=== PATIENT | female | born 1940 | race Caucasian/White ===

== ENCOUNTER 2018-01-15 13:19 | Inpatient (IN) | payer OTHER ==
[~2018-01-15] VITALS: Ht 160 cm; Wt 65.0 kg
[~2018-01-15 13:19] MED LIST: AMLODIPINE BES2.5 MG PO; COREG 25 MG TAB25 MG PO; DILTIAZEM HCL120 M2 PO; HYDRODIURIL 2525 MG PO; LEVAQUIN500 MG PO; POTASSIUM CHLO10 ME1 PO
--- NOTE | 2018-01-15 13:26 | ED GENERAL ADULT ---
History of Present Illness General Chief Complaint: General Adult Stated Complaint: PARKINSONS EXACERBATION Source: patient Exam Limitations: no limitations Allergies Coded Allergies: lisinopril (Intermediate, HIVES 01/15/18) Penicillins (VAGINAL DISCHARGE 01/15/18) Reconcile Medications Amlodipine Besylate 2.5 MG TAB 1 TAB PO DAILY HEART (Reported) Carvedilol (Coreg) 25 MG TAB 1 TAB PO BID HEART (Reported) Diltiazem Hydrochloride (Diltiazem HCl) 120 MG C24 1 CAP PO DAILY BP ( Reported) Hydrochlorothiazide (Hydrodiuril 25 MG Tab) 25 MG TAB 1 TAB PO DAILY WATER PILL (Reported) Levofloxacin (Levaquin) 500 MG TAB 1 TAB PO DAILY CELLULITIS Potassium Chloride [address] 1 TAB PO DAILY SUPPLEMENT (Reported) Triage Nurses Notes Reviewed? yes Onset: Abrupt Duration: hour(s): (5) Timing: remote history Injury Environment: home Severity: moderate Modifying Factors: Improves With: other (TIME). HPI: Patient is a 77 YO female presenting to the emergency department should complaint of dystonic reaction that began this morning around 9 AM. She reports that symptoms seem to be subsiding. She has had similar symptoms in the past that presented similarly. Denies any falls. No trauma. Denies headaches nausea vomiting fevers chills chest pain or shortness of breath. Denies abdominal pain. No urinary symptoms. Patient reports that she takes carbidopa levodopa combination and is usually from that medication. She has not taken anything at home prior to arrival to help with symptoms. Other than excessive movement of the upper and lower extremities patient feels fine. On further questioning with family and friends patient has been deteriorating over the past 1-2 weeks. Report that her tremors have been more significant over the past 1 week. Patient has had associated decreased by mouth intake with both fluids and solids. Family also reporting that she's had increased diarrhea over the past one week. She lives alone, usually ambulates around the house with a walker or cane. The friend who takes care of her ankle swelling reports that she hasn't been as mobile as she normally is over the past week or 2. Patient also reports that she had a fall 1 week ago today she went to go sit down thingy there was a chair behind her but there wasn't and she had her head. There is no LOC. Patient was able to get up without difficulty with the help of a friend but reports that she has mild discomfort in the back of her head and since then. She also reports right shoulder pain worsening over the past 6 weeks without any known injury. According to family members and her friend who takes care of her, they report that sometimes she did not make symptoms over the past one week when she speaks (Val Juares) Vital Signs & Intake/Output Vital Signs & Intake/Output Vital Signs Date Time Temp Pulse Resp B/P B/P Pulse O2 O2 Flow FiO2 Mean Ox Delivery Rate 01/15 1609 77 18 132/71 95 Room Air 01/15 1343 Room Air 01/15 1329 96.8 69 18 143/61 92 Room Air (Manuel MEREDITH,Timo Olsen) Past History Medical History Any Pertinent Medical History? see below for history Neurological: Parkinson's disease EENT: NONE Cardiovascular: hypertension Respiratory: NONE Gastrointestinal: NONE Hepatic: NONE Renal: NONE Musculoskeletal: rheumatoid arthritis Psychiatric: NONE Endocrine: NONE Blood Disorders: NONE Cancer(s): NONE OUTPATIENT FACILITY PHYSICAL THERAPIST/Reproductive: NONE Surgical History Surgical History: C-SECT,CERVICAL,CHOLY Psychosocial History What is your primary language Lithuanian Family History Hx Contributory? No (Val Juares) Review of Systems Review of Systems Constitutional: Reports: no symptoms. Comments Review of systems: See HPI, All other systems negative. Constitutional, no chills fever or weight loss HEENT: No visual changes no sore throat no congestion Cardiovascular: No chest pain ,palpitation Skin, no jaundice no rashes Respiratory: No dyspnea cough sputum or hemoptysis GI: No nausea no vomiting : No dysuria No hematuria Muscle skeletal: no back pain, no neck pain, Neurologic: No numbness , no headaches Psych: No stress anxiety or depression,. Heme/endocrine: No bruising no bleeding no polyuria or polydipsia Immunology: No splenectomy or history of AIDS (Val Juares) Physical Exam Physical Exam General Appearance: alert, awake, mild distress Comments: Well-developed well-nourished person in mild distress HEENT: Pupils equally round and reactive to light and accommodation. Nose is atraumatic. Pharynx normal. No swelling or edema. no hemotympanum noted bilaterally. Neck: Normal inspection, full range of motion. Back: Nontender Cardiovascular: Regular rate and rhythms Respiratory: No respiratory distress.breath sounds clear to auscultation bilaterally Abdomen: Soft, nontender nondistended, no appreciable organomegaly. Normal bowel sounds. No ascites Extremity: No edema, radial pulses are 2+ bilaterally. tender to palption over right acromialclavicular joint. Neuro: Alert oriented x3, motor sensory normal, thrashing movements of the upper and lower extremities, rhythmic. Skin: No appreciable rash on exposed skin, skin is warm and dry. Psych: Mood and affect is normal, memory and judgment is normal. Core Measures ACS in differential dx? No CVA/TIA Diagnosis: No Sepsis Present: No Sepsis Focused Exam Completed? No (Lizy MOMIN,Val) Progress Differential Diagnoses I considered the following diagnoses in my evaluation of the patient: Dystonic reaction, worsening Parkinson, medication reaction, electrolyte abnormality, dehydration, acute kidney injury, enteritis, orthostatic hypotension, symptomatic anemia, minor head injury, intracranial hemorrhage Diagnostic Imaging: Viewed by Me: CT Scan. Discussed w/RAD: CT Scan. Radiology Impression: PATIENT: ALTAF MATOS PRESENT AGE: 77 PATIENT ACCOUNT NO: [id number] : 41 LOCATION: [facility] ORDERING PHYSICIAN: Val MOMIN SERVICE DATE: 01/15/18 EXAM TYPE: CAT - CT HEAD WO IV CONTRAST EXAMINATION: CT HEAD WITHOUT CONTRAST CLINICAL INFORMATION: Fall one week ago. COMPARISON: None TECHNIQUE: Contiguous axial imaging was performed from the skull base to vertex without intravenous administration of contrast. DLP: 779.65 mGy-cm FINDINGS: Generalized parenchymal atrophy of the brain with proportion dilation of the ventricles, sulci, and basilar cisterns. Motion artifact partially obscures evaluation. There are intracranial atherosclerotic calcifications. There is no evidence of acute intracranial hemorrhage or territorial infarction. No abnormal mass effect or midline shift is seen. Guidry to white matter differentiation is well preserved. No extra-axial fluid collections are identified. The ventricles are normal in size. There is no abnormal attenuation within the brain parenchyma. The osseous structures and soft tissues are normal. The mastoid air cells and visualized portions of the paranasal sinuses are well aerated. IMPRESSION: No acute intracranial pathology. DICTATED BY: Ernesto Faith MD DATE/TIME DICTATED:01/15 LAWN CARETAKER:LINDA DATE/TIME TRANSCRIBED:01/15/181456 CONFIDENTIAL, DO NOT COPY WITHOUT APPROPRIATE AUTHORIZATION. <Electronically signed in Other Vendor System> SIGNED BY: Ernesto Faith MD 01/15/18 1502, PATIENT: ALTAF MATOS PRESENT AGE: 77 PATIENT ACCOUNT NO: [id number] : 41 LOCATION: [facility] ORDERING PHYSICIAN: Val MOMIN SERVICE DATE: 01/15/18 EXAM TYPE: CAT - CT HEAD WO IV CONTRAST EXAMINATION: CT HEAD WITHOUT CONTRAST CLINICAL INFORMATION: Fall one week ago. COMPARISON: None TECHNIQUE: Contiguous axial imaging was performed from the skull base to vertex without intravenous administration of contrast. DLP: 779.65 mGy-cm FINDINGS: Generalized parenchymal atrophy of the brain with proportion dilation of the ventricles, sulci, and basilar cisterns. Motion artifact partially obscures evaluation. There are intracranial atherosclerotic calcifications. There is no evidence of acute intracranial hemorrhage or territorial infarction. No abnormal mass effect or midline shift is seen. Guidry to white matter differentiation is well preserved. No extra-axial fluid collections are identified. The ventricles are normal in size. There is no abnormal attenuation within the brain parenchyma. The osseous structures and soft tissues are normal. The mastoid air cells and visualized portions of the paranasal sinuses are well aerated. IMPRESSION: No acute intracranial pathology. DICTATED BY: Ernesto Faith MD DATE/TIME DICTATED:01/15/181456 LAWN CARETAKER:LINDA DATE/TIME TRANSCRIBED:01/15/181456 CONFIDENTIAL, DO NOT COPY WITHOUT APPROPRIATE AUTHORIZATION. <Electronically signed in Other Vendor System> SIGNED BY: Ernesto Faith MD 01/15/18 1503 Initial ED EKG: NSR (artifact present) (Lizy MOMIN,Val) Plan of Care: Orders Procedure Date/time Status Heart Healthy Diet 01/16 B Active Heart Healthy Diet 01/15 D Complete Patient Data 01/15 1800 Active Add-on Test (ER Only) 01/15 1800 Active ED Holding Orders 01/15 1757 Active Admit to inpatient 01/15 1757 Active Vital Signs 01/15 1757 Active Code Status 01/15 1757 Active CULTURE,URINE 01/15 1653 Active Add-on Test (ER Only) 01/15 1552 Active EKG 01/15 1552 Active TROPONIN LEVEL 01/15 1516 Complete PARTIAL THROMBOPLASTIN TIME 01/15 151 Complete PROTHROMBIN TIME 01/15 151 Complete CULTURE,STOOL 01/15 143 Active C.DIFFICILE 01/15 143 Active URINALYSIS 01/15 143 Complete LACTIC ACID 01/15 143 Complete COMPREHENSIVE METABOLIC PANEL 01/15 1435 Complete CBC WITHOUT DIFFERENTIAL 01/15 1435 Complete Current Medications Sig/Christy Start time Last Medication Dose Stop Time Status Admin Benztropine Mesylate 2 MG ONCE ONE 01/15 1345 CAN (Cogentin) 01/15 1346 Benztropine Mesylate 1 MG ONCE ONE 01/15 1330 CAN (Cogentin) 01/15 1331 Laboratory Tests 01/15/18 1735: Lactic Acid Cancelled 01/15/18 165: Urine Color YEL, Urine Clarity CLEAR, Urine pH 6.5, Ur Specific [place] 1.015, Urine Protein NEG, Urine Ketones 15 H, Urine Nitrite NEG, Urine Bilirubin NEG, Urine Urobilinogen 0.2, Ur Leukocyte Esterase TRACE H, Ur Microscopic SEDIMENT EXAMINED, Urine RBC RARE, Urine WBC 3-5 H, Ur Epithelial Cells FEW, Urine Bacteria MANY H, Urine Mucus RARE, Urine Hemoglobin TRACE-INTACT, Urine Glucose NEG 01/15/18 151: Anion Gap 9, Estimated GFR 54 L, BUN/Creatinine Ratio 21.0, Glucose 87, Lactic Acid 1.2, Calcium 9.2, Total Bilirubin 0.6, AST 19, ALT 7 L, Alkaline Phosphatase 72, Troponin I < 0.01, Total Protein 6.4, Albumin 3.5, Globulin 2.9, Albumin/Globulin Ratio 1.2, PT 11.8, INR 1.08, APTT 27, CBC w Diff NO MAN DIFF REQ, RBC 3.54 L, MCV 91.2, MCH 30.8, MCHC 33.8, RDW 14.1, MPV 9.7, Gran % 81.4 H, Lymphocytes % 10.4 L, Monocytes % 4.7, Eosinophils % 3.2, Basophils % 0.3, Absolute Granulocytes 6.9 H, Absolute Lymphocytes 0.9 L, Absolute Monocytes 0.4, Absolute Eosinophils 0.3, Absolute Basophils 0 Microbiology 01/15 165 URINE ROUT: Urine Culture - RECD 01/15 151 STOOL: Clostridium difficile Toxin A & B - RECD 04/21 1510 STOOL: Stool Culture - RECD Patient family informed of all imaging results and laboratory results. Patient still orthostatic after 1 L normal saline. H&H has dropped from previous lab values last year and guaiac is positive with brown stool. Patient will need GI consultation, IV hydration. Discharge at this time is medically interval. Patient may need physical therapy consultation, potential rehabilitation placement- patient's thrashing movements have improved after IV Benadryl and IM Cogentin. (Val Juares) (Timo Jackson MD) Departure Departure Time of Disposition: 1823 Disposition: STILL A PATIENT Condition: Stable Clinical Impression Primary Impression: Orthostatic hypotension Secondary Impressions: Dehydration, Symptomatic anemia Referrals: Ahsan Turcios MD Departure Forms: Customer Survey General Discharge Information Admission Note Documentation of Exam: Documentation of any treatments & extenuating circumstances including Concerns Regarding Discharge (functional status, medication knowledge or non-compliance, living conditions, etc.) that warrant an admission rather than observation: Patient will need medication management potentially due to 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 (Val Juares) Admission Note Spoke With: Tyler MEREDITH,Beatriz Documentation of Exam: Documentation of any treatments & extenuating circumstances including Concerns Regarding Discharge (functional status, medication knowledge or non-compliance, living conditions, etc.) that warrant an admission rather than observation: [ Patient to be admitted for IV fluids, Cogentin as needed for dystonia, PT evaluation, unsure if the patient will require short-term rehabilitation at this time. The patient's hematocrit is also dropped slightly. Patient is heme positive with brown stool on rectal exam. Patient will need GI consultation.] PA/CONSTRUCTION PROJECT MANAGER Co-Sign Statement Statement: ED Attending supervision documentation- [X] I saw and evaluated the patient. I have also reviewed all the pertinent lab results and diagnostic results. I agree with the findings and the plan of care as documented in the PA's/CONSTRUCTION PROJECT MANAGER's documentation. [X] I have reviewed the ED Record and agree with the PA's/CONSTRUCTION PROJECT MANAGER's documentation. [] Additions or exceptions (if any) to the PAs/CONSTRUCTION PROJECT MANAGER's note and plan are summarized below: [SEE ABOVE NOTE] (Manuel MEREDITH,Timo Olsen) Critical Care Note Critical Care Note Critical Care Time: non-applicable (Val Juares)
--- NOTE | 2018-01-15 15:03 | CT SCAN REPORT ---
EXAMINATION: CT HEAD WITHOUT CONTRAST CLINICAL INFORMATION: Fall one week ago. COMPARISON: None TECHNIQUE: Contiguous axial imaging was performed from the skull base to vertex without intravenous administration of contrast. DLP: 779.65 mGy-cm FINDINGS: Generalized parenchymal atrophy of the brain with proportion dilation of the ventricles, sulci, and basilar cisterns. Motion artifact partially obscures evaluation. There are intracranial atherosclerotic calcifications. There is no evidence of acute intracranial hemorrhage or territorial infarction. No abnormal mass effect or midline shift is seen. Guidry to white matter differentiation is well preserved. No extra-axial fluid collections are identified. The ventricles are normal in size. There is no abnormal attenuation within the brain parenchyma. The osseous structures and soft tissues are normal. The mastoid air cells and visualized portions of the paranasal sinuses are well aerated. IMPRESSION: No acute intracranial pathology.
[2018-01-15 15:26] LABS: ABSOLUTE BASOPHIL COUNT 0 /CUMM (0.0-0.2); ABSOLUTE EOSINOPHIL COUNT 0.3 /CUMM (0.0-0.7); ABSOLUTE GRANULOCYTE CT 6.9 /CUMM (1.4-6.5); ABSOLUTE LYMPH COUNT 0.9 /CUMM (1.2-3.4); ABSOLUTE MONOCYTE COUNT 0.4 /CUMM (0.10-0.60); BASOPHIL % 0.3 % (0.0-2.0); EOSINOPHIL % 3.2 % (0-5); GRANULOCYTE % 81.4 % (42.2-75.2); HEMATOCRIT 32.3 % (37-47); MEAN CORPUSCULAR HGB 30.8 PG (27.0-31.0); MEAN CORPUSCULAR HGB CONC 33.8 G/DL (33.0-37.0); MEAN CORPUSCULAR VOLUME 91.2 FL (81.0-99.0); MEAN PLATELET VOLUME 9.7 FL (7.4-10.4); PLATELET COUNT 277 /CUMM (130-400); RBC DISTRIBUTION WIDTH 14.1 % (11.5-14.5); RED BLOOD CELL CT 3.54 /CUMM (4.20-5.40); WHITE BLOOD CELL COUNT 8.5 /CUMM (4.8-10.8)
[2018-01-15 16:08] LABS: PT 11.8 SEC (9.4-12.5); PTT 27 SEC (25-37)
--- NOTE | 2018-01-15 16:30 | RADIOLOGY REPORT ---
EXAMINATION: XR SHOULDER, RIGHT CLINICAL INFORMATION: Pain for 6 weeks COMPARISON: None TECHNIQUE: Three views of the right shoulder. FINDINGS: There is no evidence of acute fracture or dislocation of the right shoulder. There is prominent spurring at the glenohumeral joint with some narrowing of the joint space. There is also mild subluxation of the humeral head superiorly which may be indicative of a rotator cuff injury. No definite calcific tendinitis identified. No widening of the coracoclavicular space. No significant inferior acromial spur is seen. IMPRESSION: No acute fracture or dislocation of the right shoulder. Degenerative change with prominent marginal spurring glenohumeral joint.
--- NOTE | 2018-01-15 18:05 | History & Physical ---
Toni Puckett 01/15/18 1804: General Information and HPI MD Statement: I have seen and personally examined ALTAF MATOS and documented this H&P. The patient is a 77 year old F who presented with a patient stated chief complaint of involuntary movements Source of Information: patient Exam Limitations: poor historian History of Present Illness: 77-year-old woman from home past medical history significant for Parkinson's disease, hypertension, hypothyroidism, history of depression brought in by ambulance for intermittent spasmodic involuntary movement of her head trunk and extremities. Patient lives alone administers her own medications however she does have a significant partner who comes in to visit her. She states that was started on carbidopa levodopa and entacapone about 6 months ago and since then that she has been having difficulty walking. She has to neurologist one is Dr. Mclean and the other is a neurologist that she sees at [facility]. She also states that she is also on carbidopa levodopa 25/100 dosage. It is unclear whether she is taking both her alternating them. She also had a fall about a week ago. She says that she was picking up laundry and was about to sit down thinking there was a chair behind her but she fell down and hit her head. Denies loss of consciousness preceding previous prodromal symptoms, loss of consciousness. She endorses dizziness in which she feels herself spinning and has noticed it more and when she is turning or walking. Gives a history of few episodes of dark-colored stools. Denies abdominal pain or bright red bleeding per rectum. Has been taking Aleve almost every other day for pain control. Denies shortness of breath, chest pain, palpitations, nausea, vomiting, vision changes, headache, urinary symptoms or diarrhea. Allergies/Medications Allergies: Coded Allergies: lisinopril (Intermediate, HIVES 01/15/18) Penicillins (VAGINAL DISCHARGE 01/15/18) Home Med list Acetaminophen (Non-Aspirin Pain Relief) (Unknown Strength) TABLET (Unknown Dose) PO PRN PAIN (Reported) Acetaminophen/Diphenhydramine (Tylenol Pm Ex-Strength Caplet) (Unknown Strength) TABLET (Unknown Dose) PO PRN SLEEP (Reported) Amlodipine Besylate 2.5 MG TABLET 1 TAB PO BID BP (Reported) Aspirin (Ecotrin*) 325 MG TABLET.DR 1 TAB PO PRN PAIN (Reported) Carbidopa/Levodopa (Carbidopa-Levodopa 25-100 Tab) 25 MG-100 MG TABLET 2 TAB PO Q5H PARKINSONS (Reported) Carbidopa/Levodopa/Entacapone (Purstxitk-Ndgibstw-Ppln 150 MG) 37.5 MG-150 MG- 200 MG TABLET 1 TAB PO Q4H PARKINSONS (Reported) Carvedilol 25 MG TABLET 1 TAB PO BID HEART/BP (Reported) Cyanocobalamin (Vitamin B-12) (Vitamin B12) (Unknown Strength) TABLET (Unknown Dose) PO DAILY SUPPLEMENT (Reported) Eszopiclone 2 MG TABLET 2 TAB PO QPM SLEEP (Reported) Levothyroxine Sodium 25 MCG TABLET 1 TAB PO DAILY THYROID (Reported) Pyridoxine HCl (Vitamin B-6) (Unknown Strength) TABLET (Unknown Dose) PO DAILY SUPPLEMENT (Reported) Sertraline HCl 50 MG TABLET 1 TAB PO DAILY MENTAL HEALTH (Reported) Vitamin E Mixed (Vitamin E) (Unknown Strength) TABLET (Unknown Dose) PO DAILY SUPPLEMENT (Reported) Compliance With Home Meds: POOR Past History Travel History Traveled to [place] past 21 day No Medical History Neurological: Parkinson's disease EENT: NONE Cardiovascular: hypertension Respiratory: NONE Gastrointestinal: NONE Hepatic: NONE Renal: NONE Musculoskeletal: rheumatoid arthritis Psychiatric: NONE Endocrine: NONE Blood Disorders: NONE Cancer(s): NONE FISH AND WILDLIFE WARDEN/Reproductive: NONE Surgical History Surgical History: C-SECT,CERVICAL,CHOLY Past Family/Social History Psychosocial History ETOH Use: denies use Functional Ability ADLs Unknown: dressing, eating, toileting, bathing. Ambulation: walker IADLs Unknown: shopping, housework, finances, food prep, telephone, transportation, medication admin. Review of Systems Review of Systems Constitutional: Denies: see HPI. Exam & Diagnostic Data Last 24 Hrs of Vital Signs/I&O Vital Signs Date Time Temp Pulse Resp B/P B/P Pulse O2 O2 Flow FiO2 Mean Ox Delivery Rate 01/15 1958 98.1 63 20 204/100 94 Room Air 01/15 191 97.6 78 16 178/82 96 Room Air 01/15 1609 77 18 132/71 95 Room Air 01/15 1343 Room Air 01/15 1329 96.8 69 18 143/61 92 Room Air Intake & Output 01/15 1600 01/15 0800 04/21 0000 Intake Total 0 Output Total Balance 0 Intake, IV 0 Patient 167 lb Weight Physical Exam General Appearance Alert, Oriented X3, Cooperative HEENT PERRLA, scab on what is on crown of head Neck Supple Cardiovascular Regular Rate, Normal S1, Normal S2 Lungs Clear to Auscultation, Normal Air Movement Abdomen Normal Bowel Sounds, Soft, No Tenderness Neurological Normal Speech, Strength at 5/5 X4 Ext, Cranial Nerves 3-12 NL, Reflexes 2+, lower extremity muscle wasting noted Extremities No Edema, Normal Pulses Diagnostic Data Other Results CT HEAD WO IV CONTRAST FINDINGS: Generalized parenchymal atrophy of the brain with proportion dilation of the ventricles, sulci, and basilar cisterns. Motion artifact partially obscures evaluation. There are intracranial atherosclerotic calcifications. There is no evidence of acute intracranial hemorrhage or territorial infarction. No abnormal mass effect or midline shift is seen. Guidry to white matter differentiation is well preserved. No extra-axial fluid collections are identified. The ventricles are normal in size. There is no abnormal attenuation within the brain parenchyma. The osseous structures and soft tissues are normal. The mastoid air cells and visualized portions of the paranasal sinuses are well aerated. IMPRESSION: No acute intracranial pathology. XRY-SHOULDER COMPLETE-RIGHT FINDINGS: There is no evidence of acute fracture or dislocation of the right shoulder. There is prominent spurring at the glenohumeral joint with some narrowing of the joint space. There is also mild subluxation of the humeral head superiorly which may be indicative of a rotator cuff injury. No definite calcific tendinitis identified. No widening of the coracoclavicular space. No significant inferior acromial spur is seen. IMPRESSION: No acute fracture or dislocation of the right shoulder. Degenerative change with prominent marginal spurring glenohumeral joint. Assessment/Plan Assessment: 77-year-old woman from home past medical history significant for Parkinson's disease, hypertension, hypothyroidism, history of depression brought in by ambulance for intermittent spasmodic involuntary movement of her head trunk and extremities. Noted to be dystonic in ED, her symptoms improved after Benadryl and Cogentin. Labs significant for hypokalemia and mild drop in H&H. Assessment/plan: Dystonia Likely secondary to levodopa-induced dyskinesia Unclear if patient is taking too much of her levodopa Neurology consult in the AM Patient sees Dr. Mclean as outpatient Fall/gait imbalance Differential include Deconditioning, autonomic dysfunction secondary to Parkinson's, hypokalemia and dehydration Orthostatic positive in ED, repeat tomorrow Will hold her Norvasc for now Hypokalemia Repleted in the ED, continue to monitor Hypertension Continue carvedilol Hypothyroidism continue levothryoxine Melena The setting of frequent Aleve use? Upper GI bleed monitor CBC Monitor for active bleeding GI consulted DVT prophylaxis Alps secondary to melena Heart healthy diet Full code As Ranked By This Provider Problem List: 1. Orthostatic hypotension 2. Dehydration 3. Symptomatic anemia Core Measures/Misc (06/13) Acute Coronary Syndrome ACS Diagnosis: No Congestive Heart Failure Congestive Heart Failure Diagnosis No Cerebrovascular Accident CVA/TIA Diagnosis: No VTE (View Protocol) VTE Risk Factors Age>40 No Mechanical VTE Prophylaxis d/t Medical Contraindication No VTE Pharm Prophylaxis d/t NA PharmProphylax ordered Sepsis (View protocol) Sepsis Present: No Juventino MEREDITH, [facility] 01/15/186: Attending MD Review Statement Attending Statement Attending MD Statement: examined this patient, discuss w/resident/PA/COLOR CONSULTANT, agreed w/resident/PA/COLOR CONSULTANT, reviewed images, amended to note Attending Assessment/Plan: 77 yo F with h/o Parkinson's disease (diagnosed 10 yrs ago), HTN, CAD s/p stents , hypothyroidism, depression, rheumatic fever as a child, osteoarthritis, is brought in for uncontrolled involuntary movements of her extremities and head. Patient lives alone, ambulates with a walker/cane and has a partner (Devyn) who helps with meals and cleaning. She follows with Dr. Mclean (Neurologist) and a Movement specialist doctor at [place]. She has been on carbidopa-levodopa for her Parkinson's, and about 6 months ago she was started on triple combination [id number]. Patient has been taking both these medications based on how she feels. If she feels low, develops myalgias, tremors, slowness of movement then she know she has to take her medications. If she feels up to it then she may dose herself later than the scheduled time. Patient is a limited historian and tends to have tangential thoughts and needs to be redirected to the question everytime. She feels her symptoms today were due to the medication and reports similar symptoms in the past. Her partner noticed these abnormal movements today and called 911. Patient received benadryl and cogentin with resolution of her symptoms. Patient has been having difficulty ambulating since she was started on the triple therapy for Parkinson's. 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 She hit the posterior aspect of head but did not lose consciouseness. She does report dizziness which is positional. She has had dark stools for the past few days. Denies heartburn, melena or BRBPR. Reports poor appetite. Denies diarrhea or constipation, although ER note states she had diarrhea. She is supposed to be on aspirin 325 mg for her CAD, but she takes aspirin every 6 hours to help with her arthritic pain. She also takes Aleve at times to help with the pain. Unclear when she had her last colonoscopy. Vitals stable except for elevated BP (200/98). Labs: normocytic anemia H/H 10.9/32.3 (13.7/41.4 in December 2016), K 3.3, BUN 21, lactic acid 1.2, CK 150, trop neg, TSH normal. UA trace LE, proteinuria, WBC 3- 5. EKG: appears sinus although baseline artifact as patient was tremulous. CT head: no acute pathology. Shoulder Xray: no acute fracture, degenerative change with prominent marginal spurring glenohumeral joint, mild subluxation of the humeral head superiorly which may be indicative of a rotator cuff injury. Orthostats: Lying 218/91 --> Sitting 192/83 --> Standing 154/75. Rectal exam: brown stool, guaiac positive. Assessment and plan: 1. Dyskinesia, acute dystonic reaction 2. Parkinson's disease on medications 3. Orthostatic hypotension 2/2 autonomic dysfunction 4. Normocytic anemia with heme positive stools, rule out upper GI bleed in the setting of excessive use of NSAIDs 5. Fall, gait instability 6. Hypokalemia, ?diarrhea 7. Uncontrolled hypertension - Admit to General medicine - Fall precautions - Watch for further dyskinesias - Neurochecks Q4 - Resume carbidopa-levodopa in AM - Hold entacapone for now - In addition to her autonomic dysfunction, parkinson medications can also cause orthostatic hypotension. - Place bilateral compression stockings - Gentle hydration (500 mls given in ER) - If BP allows, will give additional fluids - Obtain Neuro consult, needs med adjustment - Repeat EKG - Hold norvasc, aspirin and no NSAIDs - Resume carvedilol - Type and crossmatch - Guaiac all stools - Check iron studies, B12, folic acid, retic count - Check CBC in AM, transfuse if Hb < 8.0 - Add prilosec daily - GI consult ?inpatient vs outpatient EGD/colonoscopy - Replete K, check Mag levels. - PT eval, possible STR - Case management consult patient will need visiting nurse to help with administration of medications. DVT ppx Alps. Full code.
[2018-01-15] MEDS ORDERED: AMLODIPINE BES2.5 M1 PO (19:00)
[2018-01-15] MEDS ORDERED: SERTRALINE HCL50 MG PO (19:01)
[2018-01-15] MEDS ORDERED: CARVEDILOL25 M1 PO (19:02)
[2018-01-15] MEDS ORDERED: LEVOTHYROXINE25 MCG PO (19:02)
[2018-01-15] MEDS ORDERED: ESZOPICLONE2 M1 PO (19:02)
[2018-01-15] MEDS ORDERED: CARBIDOPA-LEVO1 EAC7 PO (19:03)
[2018-01-15] MEDS ORDERED: CARBIDOPA-LEVO1 EACH PO (19:06)
[2018-01-15] MEDS ORDERED: VITAMIN B-650 M2 PO (19:09)
[2018-01-15] MEDS ORDERED: VITAMIN B122500 MC1 PO (19:09)
[2018-01-15] MEDS ORDERED: ASPIRIN EC325 M2 PO (19:10)
[2018-01-15] MEDS ORDERED: VITAMIN E100 UNI2 PO (19:10)
[2018-01-15] MEDS ORDERED: TYLENOL PM EX-1 EACH PO (19:10)
[2018-01-15] MEDS ORDERED: NON-ASPIRIN PA500 MG PO (19:11)
[2018-01-15 19:58] VITALS: BP 204/100
--- NOTE | 2018-01-15 21:35 | Admission Certification ---
Admission Certification Certification Statement - As attending physician, I certify that at the time of - admission, based on clinical presentation, severity of - symptoms, need for further diagnostic testing and - therapeutic interventions, and risk of adverse outcomes - without in-hospital treatment, in my clinical assessment, - this patient requires an acute hospital stay for a minimum - of two nights or longer. I have also considered psychsocial - factors such as support system, advanced age, financial - issues, cognitive issues, and failed out-patient treatments, - past re-admission history, safety of patient, and lack of - compliance as applicable. Specific rationale supporting this admission is: Dyskinesia in this patient with Parkinson's disease on medications and normocytic anemia that requires further evaluation.
[2018-01-15 22:00] VITALS: BP 200/98
[2018-01-16 00:54] VITALS: BP 158/70
[2018-01-16 06:57] VITALS: BP 174/80
--- NOTE | 2018-01-16 07:33 | PN- Housestaff ---
Subjective Follow-up For: Orthostatis hypotansion Parkinsonism Subjective: Patient visited today, was lying in bed comfortably in no acute distress, was alert and oriented. No fever or chills, no shortness of breathing, no chest pain, no other events. in baseline ambulated with walker. Review of Systems Constitutional: Reports: see HPI. Objective Last 24 Hrs of Vital Signs/I&O Vital Signs Date Time Temp Pulse Resp B/P B/P Pulse O2 O2 Flow FiO2 Mean Ox Delivery Rate 01/16 0934 178/80 01/16 0657 97.8 64 18 174/80 93 Room Air 01/16 0054 60 158/70 01/15 2204 60 200/98 01/15 2200 97.2 97 18 200/98 92 Room Air 01/15 1958 98.1 63 20 204/100 94 Room Air 01/15 1912 97.6 78 16 178/82 96 Room Air 01/15 1609 77 18 132/71 95 Room Air 01/15 1343 Room Air Intake & Output 01/16 1600 01/16 0800 01/16 0000 Intake Total 300 400 Output Total 250 Balance 300 150 Intake, Oral 300 400 Number 1 Bowel Movements Output, Urine 250 Patient 151 lb 163 lb Weight Weight Bed scale Reported by Patient Measurement Method Physical Exam General Appearance: Alert, Oriented X3, Cooperative, No Acute Distress Skin Temp/Moisture Exam: Warm/Dry Sepsis Skin Exam (color): Normal for Ethnicity HEENT: Atraumatic, EOMI Cardiovascular: Regular Rate, Normal S1, Normal S2 Lungs: Clear to Auscultation Abdomen: Soft, No Tenderness Neurological: Normal Speech, Strength at 5/5 X4 Ext, Cranial Nerves 3-12 NL, Reflexes 2+ Extremities: No Edema, Normal Pulses Current Medications: Current Medications Sig/Christy Start time Last Medication Dose Route Stop Time Status Admin Acetaminophen 650 MG ONCE ONE 01/16 1315 DC PO 01/16 1316 Benztropine Mesylate 1 MG ONCE ONE 01/15 1400 DC 01/15 IM 01/15 1401 1405 Benztropine Mesylate 2 MG ONCE ONE 01/15 1345 CAN IV 01/15 1346 Benztropine Mesylate 1 MG ONCE ONE 01/15 1330 CAN IV 01/15 1331 Carbidopa/Levodopa 1.5 TAB Q6H 01/16 1000 AC 01/16 PO 0934 Carvedilol 25 MG BID 01/15 2100 AC 01/16 PO 0934 Diphenhydramine HCl 0 .STK-MED ONE 01/15 1402 DC .ROUTE Diphenhydramine HCl 25 MG ONCE ONE 01/15 1400 DC 01/15 IV 01/15 1401 1405 Enoxaparin Sodium 40 MG DAILY 01/16 0900 CAN SC Entacapone 200 MG Q6H 01/16 1000 CAN PO Influenza Virus 0.5 ML ONCE ONE 01/15 2115 DC Vaccine IM 01/15 211 Levothyroxine Sodium 0.025 MG DAILY AC 01/16 0700 AC 01/16 PO 0636 Omeprazole 20 MG DAILY AC 01/16 1230 AC 01/16 PO 1258 Omeprazole 20 MG DAILY AC 01/16 0700 AC PO Potassium Chloride 0 .STK-MED ONE 01/15 1622 DC PO Potassium Chloride 40 MEQ ONCE ONE 01/15 1600 DC 01/15 PO 01/15 1601 1632 Sodium Chloride 1,000 ML BOLUS ONE 01/15 1445 DC 01/15 IV 01/15 1644 1537 Last 24 Hrs of Lab/Tani Results Last 24 Hrs of Labs/Mics: Laboratory Tests 01/16/18 0755: Anion Gap 7, Estimated GFR > 60, BUN/Creatinine Ratio 17.8, CBC w Diff NO MAN DIFF REQ, RBC 3.55 L, MCV 91.1, MCH 31.2 H, MCHC 34.2, RDW 13.9, MPV 10.1, Gran % 68.9, Lymphocytes % 18.7 L, Monocytes % 6.3, Eosinophils % 5.4 H, Basophils % 0.7, Absolute Granulocytes 3.9, Absolute Lymphocytes 1.1 L, Absolute Monocytes 0.4, Absolute Eosinophils 0.3, Absolute Basophils 0 01/15/18 1735: Lactic Acid Cancelled 01/15/18 1653: Urine Color YEL, Urine Clarity CLEAR, Urine pH 6.5, Ur Specific [place] 1.015, Urine Protein NEG, Urine Ketones 15 H, Urine Nitrite NEG, Urine Bilirubin NEG, Urine Urobilinogen 0.2, Ur Leukocyte Esterase TRACE H, Ur Microscopic SEDIMENT EXAMINED, Urine RBC RARE, Urine WBC 3-5 H, Ur Epithelial Cells FEW, Urine Bacteria MANY H, Urine Mucus RARE, Urine Hemoglobin TRACE-INTACT, Urine Glucose NEG 01/15/18 1516: Anion Gap 9, Estimated GFR 54 L, BUN/Creatinine Ratio 21.0, Glucose 87, Lactic Acid 1.2, Calcium 9.2, Iron 85, TIBC 335, Ferritin 24.1, Total Bilirubin 0.6, AST 19, ALT 7 L, Alkaline Phosphatase 72, Creatine Kinase 150 H, Troponin I < 0.01, Total Protein 6.4, Albumin 3.5, Globulin 2.9, Albumin/Globulin Ratio 1.2, Vitamin B12 573, Folate 10.6, TSH 1.030, Thyroxine (T4) 6.0, PT 11.8, INR 1.08, APTT 27, CBC w Diff NO MAN DIFF REQ, RBC 3.54 L, MCV 91.2, MCH 30.8, MCHC 33.8, RDW 14.1, MPV 9.7, Gran % 81.4 H, Lymphocytes % 10.4 L, Monocytes % 4.7, Eosinophils % 3.2, Basophils % 0.3, Absolute Granulocytes 6.9 H, Absolute Lymphocytes 0.9 L, Absolute Monocytes 0.4, Absolute Eosinophils 0.3, Absolute Basophils 0 Microbiology 01/15 1653 URINE ROUT: Urine Culture - RES 01/15 1510 STOOL: Clostridium difficile Toxin A & B - RES 01/15 1510 STOOL: Stool Culture - RES Assessment/Plan Assessment: 77-year-old woman from home past medical history significant for Parkinson's disease, hypertension, hypothyroidism, history of depression brought in by ambulance for intermittent spasmodic involuntary movement of her head trunk and extremities. Noted to be dystonic in ED, her symptoms improved after Benadryl and Cogentin. Labs significant for hypokalemia and mild drop in H&H. Assessment/plan: Dystonia Likely secondary to levodopa-induced dyskinesia Unclear if patient is taking too much of her levodopa Neurology consult placed follow neurology Patient sees Dr. Mclena as outpatient Fall/gait imbalance Differential include Deconditioning, autonomic dysfunction secondary to Parkinson's, hypokalemia and dehydration Orthostatic positive in ED Will hold her Norvasc for now Hypokalemia Repleted in the ED, continue to monitor Hypertension Continue carvedilol consider to hold if BP low Hypothyroidism continue levothryoxine Melena The setting of frequent Aleve use? Upper GI bleed monitor CBC Monitor for active bleeding GI signed off Oral PPI DVT prophylaxis Alps secondary to melena Heart healthy diet Full code Problem List: 1. Orthostatic hypotension Pain Ratin Pain Location: none Pain Goal: Pain 4 or less Pain Plan: conintue current plan Tomorrow's Labs & Rationales: CBC BEP
[2018-01-16 09:24] LABS: ABSOLUTE BASOPHIL COUNT 0 /CUMM (0.0-0.2); ABSOLUTE EOSINOPHIL COUNT 0.3 /CUMM (0.0-0.7); ABSOLUTE GRANULOCYTE CT 3.9 /CUMM (1.4-6.5); ABSOLUTE LYMPH COUNT 1.1 /CUMM (1.2-3.4); ABSOLUTE MONOCYTE COUNT 0.4 /CUMM (0.10-0.60); BASOPHIL % 0.7 % (0.0-2.0); EOSINOPHIL % 5.4 % (0-5); GRANULOCYTE % 68.9 % (42.2-75.2); HEMATOCRIT 32.3 % (37-47); MEAN CORPUSCULAR HGB 31.2 PG (27.0-31.0); MEAN CORPUSCULAR HGB CONC 34.2 G/DL (33.0-37.0); MEAN CORPUSCULAR VOLUME 91.1 FL (81.0-99.0); MEAN PLATELET VOLUME 10.1 FL (7.4-10.4); PLATELET COUNT 284 /CUMM (130-400); RBC DISTRIBUTION WIDTH 13.9 % (11.5-14.5); RED BLOOD CELL CT 3.55 /CUMM (4.20-5.40); WHITE BLOOD CELL COUNT 5.6 /CUMM (4.8-10.8)
--- NOTE | 2018-01-16 11:38 | Cons- Gastroenterology ---
General Information and HPI Consulting Request Date of Consult: 01/16/18 Requested By: Juventino MEREDITH,Marybel Reason for Consult: Diarrhea, reports of melena. Source of Information: patient Exam Limitations: no limitations History of Present Illness: Ms. Ge is a 77 year old female with a PMH significant for RA and Parkinsons disease for which she was started on levodopa/cardiodopa about 6 months ago who was admitted to [facility] yesterday after she presented with progressive neurological symptoms and an inability to ambulate/falls for which she was admitted. In taking her history it was noted by the housestaff that she has been taking alleve for joint pains and she has also been having diarrhea which she states has been dark for which a gi consultation was called. She notes that since she was diagnosed with Parkinsons about 10 years ago she has had issues with constipation and when she doesn't go for a period of a few days she will take an otc laxative with good results and she notes to me this was the loose stool she was complaining of. She notes the stool was dark, but she denies having black tarry sticky stool and she has also been without any hematochezia. She does take alleve for her joint pains, but she is without any GI distress with taking this. She notes heatburn very rarely (less then once a month) and she notes this generally only occurs with dietary indiscretion. She is without any dysphagia or vomiting. Since admission she has been hemodynamically stable and she has been tolerating a diet without difficulty. Stool studies have been ordered, but have not been collected as of yet as she has not yet had a bowel movement. Allergies/Medications Allergies: Coded Allergies: lisinopril (Intermediate, HIVES 01/15/18) Penicillins (VAGINAL DISCHARGE 01/15/18) Home Med List: Acetaminophen (Non-Aspirin Pain Relief) (Unknown Strength) TABLET (Unknown Dose) PO PRN PAIN (Reported) Acetaminophen/Diphenhydramine (Tylenol Pm Ex-Strength Caplet) (Unknown Strength) TABLET (Unknown Dose) PO PRN SLEEP (Reported) Amlodipine Besylate 2.5 MG TABLET 1 TAB PO BID BP (Reported) Aspirin (Ecotrin*) 325 MG TABLET.DR 1 TAB PO PRN PAIN (Reported) Carbidopa/Levodopa (Carbidopa-Levodopa 25-100 Tab) 25 MG-100 MG TABLET 2 TAB PO Q5H PARKINSONS (Reported) Carbidopa/Levodopa/Entacapone (Aqbzvpoal-Pohpitzb-Djab 150 MG) 37.5 MG-150 MG- 200 MG TABLET 1 TAB PO Q4H PARKINSONS (Reported) Carvedilol 25 MG TABLET 1 TAB PO BID HEART/BP (Reported) Cyanocobalamin (Vitamin B-12) (Vitamin B12) (Unknown Strength) TABLET (Unknown Dose) PO DAILY SUPPLEMENT (Reported) Eszopiclone 2 MG TABLET 2 TAB PO QPM SLEEP (Reported) Levothyroxine Sodium 25 MCG TABLET 1 TAB PO DAILY THYROID (Reported) Pyridoxine HCl (Vitamin B-6) (Unknown Strength) TABLET (Unknown Dose) PO DAILY SUPPLEMENT (Reported) Sertraline HCl 50 MG TABLET 1 TAB PO DAILY MENTAL HEALTH (Reported) Vitamin E Mixed (Vitamin E) (Unknown Strength) TABLET (Unknown Dose) PO DAILY SUPPLEMENT (Reported) Current Medications: Current Medications Sig/Christy Start time Last Medication Dose Route Stop Time Status Admin Benztropine Mesylate 1 MG ONCE ONE 01/15 1400 DC 01/15 IM 01/15 1401 1405 Benztropine Mesylate 2 MG ONCE ONE 01/15 1345 CAN IV 01/15 1346 Benztropine Mesylate 1 MG ONCE ONE 01/15 1330 CAN IV 01/15 1331 Carbidopa/Levodopa 1.5 TAB Q6H 01/16 1000 AC 01/16 PO 0934 Carvedilol 25 MG BID 01/15 2100 AC 01/16 PO 0934 Diphenhydramine HCl 0 .STK-MED ONE 01/15 1402 DC .ROUTE Diphenhydramine HCl 25 MG ONCE ONE 01/15 1400 DC 01/15 IV 01/15 1401 1405 Enoxaparin Sodium 40 MG DAILY 01/16 0900 CAN SC Entacapone 200 MG Q6H 01/16 1000 CAN PO Influenza Virus 0.5 ML ONCE ONE 01/15 2115 DC Vaccine IM 01/15 211 Levothyroxine Sodium 0.025 MG DAILY AC 01/16 0700 AC 01/16 PO 0636 Omeprazole 20 MG DAILY AC 01/16 0700 AC PO Potassium Chloride 0 .STK-MED ONE 01/15 1622 DC PO Potassium Chloride 40 MEQ ONCE ONE 01/15 1600 DC 01/15 PO 01/15 1601 1632 Sodium Chloride 1,000 ML BOLUS ONE 01/15 1445 DC 01/15 IV 01/15 1641 1537 Past History Travel History Traveled to [place] past 21 day No Medical History Blood Transfusion Hx: No Neurological: Parkinson's disease EENT: NONE Cardiovascular: hypertension Respiratory: NONE Gastrointestinal: NONE Hepatic: NONE Renal: NONE Musculoskeletal: rheumatoid arthritis Psychiatric: NONE Endocrine: NONE Blood Disorders: NONE Cancer(s): NONE 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 Home Smoking Status: Never Smoked ETOH Use: denies use Functional Ability ADLs Unknown: dressing, eating, toileting, bathing. Ambulation: walker IADLs Unknown: shopping, housework, finances, food prep, telephone, transportation, medication admin. Review of Systems Review of Systems Constitutional: Reports: weakness. Denies: chills, diaphoresis, fever. EENTM: Denies: no symptoms. Cardiovascular: Denies: no symptoms. Respiratory: Denies: no symptoms. GI: Reports: see HPI. Genitourinary: Denies: no symptoms. Musculoskeletal: Reports: joint pain, joint swelling, muscle pain, muscle stiffness. Denies: back pain, neck pain. Skin: Denies: no symptoms. Neurological/Psychological: Reports: ataxia, pre-existing deficit, other (involuntary movements). Hematologic/Endocrine: Denies: no symptoms. Immunologic/Allergic: Denies: no symptoms. All Other Systems: Reviewed and Negative Exam & Diagnostic Data Vital Signs and I&O Vital Signs Date Time Temp Pulse Resp B/P B/P Pulse O2 O2 Flow FiO2 Mean Ox Delivery Rate 01/16 0934 178/80 01/16 0657 97.8 64 18 174/80 93 Room Air 01/16 0054 60 158/70 01/15 2204 60 200/98 01/15 220 97.2 97 18 200/98 92 Room Air 01/15 1958 98.1 63 20 204/100 94 Room Air 01/15 1912 97.6 78 16 178/82 96 Room Air 01/15 1609 77 18 132/71 95 Room Air 01/15 1343 Room Air 01/15 1329 96.8 69 18 143/61 92 Room Air Intake & Output 01/16 1600 01/16 0400 01/15 1600 01/15 0400 01/14 1600 01/14 0400 Intake Total 300 400 0 Output Total 250 Balance 300 150 0 Intake, IV 0 Intake, Oral 300 400 Number 1 Bowel Movements Output, Urine 250 Patient 151 lb 163 lb 167 lb Weight Weight Bed scale Reported by Patient Measurement Method Physical Exam General Appearance: well developed/nourished, no apparent distress, comfortable Head: atraumatic, normal appearance Eyes: Bilateral: normal appearance. Ears, Nose, Throat: normal pharynx, normal ENT inspection Neck: normal inspection, supple, full range of motion Respiratory: normal breath sounds, chest non-tender, no respiratory distress Cardiovascular: regular rate/rhythm Gastrointestinal: normal bowel sounds, soft, non-tender, no organomegaly Rectal: deferred Back: normal inspection Extremities: no edema, chronic joint deformities c/w chronic RA Neurologic/Psych: awake, alert, oriented x 3, aphasia Skin: intact, normal color, warm/dry Results Pertinent Lab Results: Laboratory Tests 01/16 01/15 0755 1735 Chemistry Sodium (137 - 145 mmol/L) 139 Potassium (3.5 - 5.1 mmol/L) 3.5 Chloride (98 - 107 mmol/L) 110 H Carbon Dioxide (22 - 30 mmol/L) 22 Anion Gap (5 - 16) 7 BUN (7 - 17 mg/dL) 16 Creatinine (0.5 - 1.0 mg/dL) 0.9 Estimated GFR (>60 ml/min) > 60 BUN/Creatinine Ratio (7 - 25 %) 17.8 Lactic Acid Cancelled Hematology CBC w Diff NO MAN DIFF REQ WBC (4.8 - 10.8 /CUMM) 5.6 RBC (4.20 - 5.40 /CUMM) 3.55 L Hgb (12.0 - 16.0 G/DL) 11.1 L Hct (37 - 47 %) 32.3 L MCV (81.0 - 99.0 FL) 91.1 MCH (27.0 - 31.0 PG) 31.2 H MCHC (33.0 - 37.0 G/DL) 34.2 RDW (11.5 - 14.5 %) 13.9 Plt Count (130 - 400 /CUMM) 284 MPV (7.4 - 10.4 FL) 10.1 Gran % (42.2 - 75.2 %) 68.9 Lymphocytes % (20.5 - 51.1 %) 18.7 L Monocytes % (1.7 - 9.3 %) 6.3 Eosinophils % (0 - 5 %) 5.4 H Basophils % (0.0 - 2.0 %) 0.7 Absolute Granulocytes (1.4 - 6.5 /CUMM) 3.9 Absolute Lymphocytes (1.2 - 3.4 /CUMM) 1.1 L Absolute Monocytes (0.10 - 0.60 /CUMM) 0.4 Absolute Eosinophils (0.0 - 0.7 /CUMM) 0.3 Absolute Basophils (0.0 - 0.2 /CUMM) 0 01/15 01/15 1653 1516 Chemistry Sodium (137 - 145 mmol/L) 137 Potassium (3.5 - 5.1 mmol/L) 3.3 L Chloride (98 - 107 mmol/L) 105 Carbon Dioxide (22 - 30 mmol/L) 23 Anion Gap (5 - 16) 9 BUN (7 - 17 mg/dL) 21 H Creatinine (0.5 - 1.0 mg/dL) 1.0 Estimated GFR (>60 ml/min) 54 L BUN/Creatinine Ratio (7 - 25 %) 21.0 Glucose (65 - 99 mg/dL) 87 Lactic Acid (0.7 - 2.1 mmol/L) 1.2 Calcium (8.4 - 10.2 mg/dL) 9.2 Iron (37 - 170 ug/dL) 85 TIBC (265 - 497 ug/dL) 335 Ferritin (11.1 - 264 ng/mL) 24.1 Total Bilirubin (0.2 - 1.3 mg/dL) 0.6 AST (14 - 36 U/L) 19 ALT (9 - 52 U/L) 7 L Alkaline Phosphatase (<127 U/L) 72 Creatine Kinase (30 - 135 U/L) 150 H Troponin I (< 0.11 ng/ml) < 0.01 Total Protein (6.3 - 8.2 g/dL) 6.4 Albumin (3.5 - 5.0 g/dL) 3.5 Globulin (1.9 - 4.2 gm/dL) 2.9 Albumin/Globulin Ratio (1.1 - 2.2 %) 1.2 Vitamin B12 (239 - 931 pg/mL) 573 Folate (2.76 - 20.0 ng/mL) 10.6 TSH (0.270 - 4.200 uIU/mL) 1.030 Thyroxine (T4) (4.5 - 10.9 ug/dL) 6.0 Coagulation PT (9.4 - 12.5 SEC) 11.8 INR (0.90 - 1.19) 1.08 APTT (25 - 37 SEC) 27 Hematology CBC w Diff NO MAN DIFF REQ WBC (4.8 - 10.8 /CUMM) 8.5 RBC (4.20 - 5.40 /CUMM) 3.54 L Hgb (12.0 - 16.0 G/DL) 10.9 L Hct (37 - 47 %) 32.3 L MCV (81.0 - 99.0 FL) 91.2 MCH (27.0 - 31.0 PG) 30.8 MCHC (33.0 - 37.0 G/DL) 33.8 RDW (11.5 - 14.5 %) 14.1 Plt Count (130 - 400 /CUMM) 277 MPV (7.4 - 10.4 FL) 9.7 Gran % (42.2 - 75.2 %) 81.4 H Lymphocytes % (20.5 - 51.1 %) 10.4 L Monocytes % (1.7 - 9.3 %) 4.7 Eosinophils % (0 - 5 %) 3.2 Basophils % (0.0 - 2.0 %) 0.3 Absolute Granulocytes (1.4 - 6.5 /CUMM) 6.9 H Absolute Lymphocytes (1.2 - 3.4 /CUMM) 0.9 L Absolute Monocytes (0.10 - 0.60 /CUMM) 0.4 Absolute Eosinophils (0.0 - 0.7 /CUMM) 0.3 Absolute Basophils (0.0 - 0.2 /CUMM) 0 Urines Urine Color (YEL,AMB,STR) YEL Urine Clarity (CLEAR) CLEAR Urine pH (5.0 - 8.0) 6.5 Ur Specific [place] (1.001 - 1.035) 1.015 Urine Protein (NEG,<30 MG/DL) NEG Urine Ketones (NEG) 15 H Urine Nitrite (NEG) NEG Urine Bilirubin (NEG) NEG Urine Urobilinogen (0.1 - 1.0 EU/dl) 0.2 Ur Leukocyte Esterase (NEG) TRACE H Ur Microscopic SEDIMENT EXAMINED Urine RBC (0 - 5 /HPF) RARE Urine WBC (0 - 2 /HPF) 3-5 H Ur Epithelial Cells (NONE,FEW) FEW Urine Bacteria (NEG/NONE) MANY H Urine Mucus (FEW,NONE) RARE Urine Hemoglobin (NEG) TRACE-INTACT Urine Glucose (N MG/DL) NEG Assessment/Plan Assessment/Recommendations: Assessment: Ms. Ge is a 77 year old female with Parkinsons disease for the past 10 years who is currently admitted for worsening neurological symptoms, falls etc. who has been noted to have some dark, loose stool on history potentially concerning for melena considering her history of taking nsaids, but the color of the stool is more likely diet related and the diarrhea sounds like it was secondary to laxatives. Her hgb has been stable since admission and is actually improved and she also has not had any significant diarrhea or and melena since being admitted so I don't feel that any acute GI interventions are necessary at this time. Recommendations: 1. Diet as tolerated. 2. PO omeprazole for GI prophylaxis if she is going to continue taking nsaids 3. Notify GI for any signs of overt hemodynamically significant GI bleeding. 4. High fiber diet and use miralax as needed for constipation. 5. Would check stool studies to rule out infectious causes of diarrhea should she have diarrhea in the hospital without taking laxatives. Will sign off at this time and would ask that GI be re-contacted for any other GI issues that may arise while she is admitted. Problem List: 1. Dehydration Copies To: Elizabet MEREDITH,Cynthia Perez. Consult Acknowledgment - Thank you for your consult request.
--- NOTE | 2018-01-16 12:45 | PN- Att Addend ---
Attending Addendum Attending Brief Note Patient seen and examined, thinks that she might be having a reaction to Sinemet cause of these dystonic movements as well as pain in the legs just like restless leg syndrome. H&H remain stable. Vital Signs Date Time Temp Pulse Resp B/P B/P Pulse O2 O2 Flow FiO2 Mean Ox Delivery Rate 01/16 0934 178/80 01/16 0657 97.8 64 18 174/80 93 Room Air 01/16 0054 60 158/70 01/15 2204 60 200/98 01/15 2200 97.2 97 18 200/98 92 Room Air 01/15 1958 98.1 63 20 204/100 94 Room Air 01/15 1912 97.6 78 16 178/82 96 Room Air 01/15 1609 77 18 132/71 95 Room Air 01/15 1343 Room Air 01/15 1329 96.8 69 18 143/61 92 Room Air on exam; aox3, nad. cv; s1,s2, rrr resp; clear abd; soft, nt, bs+ ext; no edema Laboratory Tests 01/16 01/15 0755 1735 Chemistry Sodium (137 - 145 mmol/L) 139 Potassium (3.5 - 5.1 mmol/L) 3.5 Chloride (98 - 107 mmol/L) 110 H Carbon Dioxide (22 - 30 mmol/L) 22 Anion Gap (5 - 16) 7 BUN (7 - 17 mg/dL) 16 Creatinine (0.5 - 1.0 mg/dL) 0.9 Estimated GFR (>60 ml/min) > 60 BUN/Creatinine Ratio (7 - 25 %) 17.8 Lactic Acid Cancelled Hematology CBC w Diff NO MAN DIFF REQ WBC (4.8 - 10.8 /CUMM) 5.6 RBC (4.20 - 5.40 /CUMM) 3.55 L Hgb (12.0 - 16.0 G/DL) 11.1 L Hct (37 - 47 %) 32.3 L MCV (81.0 - 99.0 FL) 91.1 MCH (27.0 - 31.0 PG) 31.2 H MCHC (33.0 - 37.0 G/DL) 34.2 RDW (11.5 - 14.5 %) 13.9 Plt Count (130 - 400 /CUMM) 284 MPV (7.4 - 10.4 FL) 10.1 Gran % (42.2 - 75.2 %) 68.9 Lymphocytes % (20.5 - 51.1 %) 18.7 L Monocytes % (1.7 - 9.3 %) 6.3 Eosinophils % (0 - 5 %) 5.4 H Basophils % (0.0 - 2.0 %) 0.7 Absolute Granulocytes (1.4 - 6.5 /CUMM) 3.9 Absolute Lymphocytes (1.2 - 3.4 /CUMM) 1.1 L Absolute Monocytes (0.10 - 0.60 /CUMM) 0.4 Absolute Eosinophils (0.0 - 0.7 /CUMM) 0.3 Absolute Basophils (0.0 - 0.2 /CUMM) 0 01/15 01/15 1653 1516 Chemistry Sodium (137 - 145 mmol/L) 137 Potassium (3.5 - 5.1 mmol/L) 3.3 L Chloride (98 - 107 mmol/L) 105 Carbon Dioxide (22 - 30 mmol/L) 23 Anion Gap (5 - 16) 9 BUN (7 - 17 mg/dL) 21 H Creatinine (0.5 - 1.0 mg/dL) 1.0 Estimated GFR (>60 ml/min) 54 L BUN/Creatinine Ratio (7 - 25 %) 21.0 Glucose (65 - 99 mg/dL) 87 Lactic Acid (0.7 - 2.1 mmol/L) 1.2 Calcium (8.4 - 10.2 mg/dL) 9.2 Iron (37 - 170 ug/dL) 85 TIBC (265 - 497 ug/dL) 335 Ferritin (11.1 - 264 ng/mL) 24.1 Total Bilirubin (0.2 - 1.3 mg/dL) 0.6 AST (14 - 36 U/L) 19 ALT (9 - 52 U/L) 7 L Alkaline Phosphatase (<127 U/L) 72 Creatine Kinase (30 - 135 U/L) 150 H Troponin I (< 0.11 ng/ml) < 0.01 Total Protein (6.3 - 8.2 g/dL) 6.4 Albumin (3.5 - 5.0 g/dL) 3.5 Globulin (1.9 - 4.2 gm/dL) 2.9 Albumin/Globulin Ratio (1.1 - 2.2 %) 1.2 Vitamin B12 (239 - 931 pg/mL) 573 Folate (2.76 - 20.0 ng/mL) 10.6 TSH (0.270 - 4.200 uIU/mL) 1.030 Thyroxine (T4) (4.5 - 10.9 ug/dL) 6.0 Coagulation PT (9.4 - 12.5 SEC) 11.8 INR (0.90 - 1.19) 1.08 APTT (25 - 37 SEC) 27 Hematology CBC w Diff NO MAN DIFF REQ WBC (4.8 - 10.8 /CUMM) 8.5 RBC (4.20 - 5.40 /CUMM) 3.54 L Hgb (12.0 - 16.0 G/DL) 10.9 L Hct (37 - 47 %) 32.3 L MCV (81.0 - 99.0 FL) 91.2 MCH (27.0 - 31.0 PG) 30.8 MCHC (33.0 - 37.0 G/DL) 33.8 RDW (11.5 - 14.5 %) 14.1 Plt Count (130 - 400 /CUMM) 277 MPV (7.4 - 10.4 FL) 9.7 Gran % (42.2 - 75.2 %) 81.4 H Lymphocytes % (20.5 - 51.1 %) 10.4 L Monocytes % (1.7 - 9.3 %) 4.7 Eosinophils % (0 - 5 %) 3.2 Basophils % (0.0 - 2.0 %) 0.3 Absolute Granulocytes (1.4 - 6.5 /CUMM) 6.9 H Absolute Lymphocytes (1.2 - 3.4 /CUMM) 0.9 L Absolute Monocytes (0.10 - 0.60 /CUMM) 0.4 Absolute Eosinophils (0.0 - 0.7 /CUMM) 0.3 Absolute Basophils (0.0 - 0.2 /CUMM) 0 Urines Urine Color (YEL,AMB,STR) YEL Urine Clarity (CLEAR) CLEAR Urine pH (5.0 - 8.0) 6.5 Ur Specific [place] (1.001 - 1.035) 1.015 Urine Protein (NEG,<30 MG/DL) NEG Urine Ketones (NEG) 15 H Urine Nitrite (NEG) NEG Urine Bilirubin (NEG) NEG Urine Urobilinogen (0.1 - 1.0 EU/dl) 0.2 Ur Leukocyte Esterase (NEG) TRACE H Ur Microscopic SEDIMENT EXAMINED Urine RBC (0 - 5 /HPF) RARE Urine WBC (0 - 2 /HPF) 3-5 H Ur Epithelial Cells (NONE,FEW) FEW Urine Bacteria (NEG/NONE) MANY H Urine Mucus (FEW,NONE) RARE Urine Hemoglobin (NEG) TRACE-INTACT Urine Glucose (N MG/DL) NEG A/P; 77 F with pmh sig for Parkinson's disease (diagnosed 10 yrs ago), HTN, CAD s/p stents, hypothyroidism, depression, rheumatic fever as a child, osteoarthritis admitted with dyskinesia, acute dystonic reaction with history of Parkinson's disease and being on Parkinson's medications. Also had complained about black stools which were guaiac positive. H&H remained stable. Appreciate GI input. No evidence of active GI bleed. Patient on PPI. We'll continue to monitor H&H. If there is any evidence of active GI bleed and GI will need to be called again. Please consult neurology for the management of Parkinson's medications. Current regimen is not controlling blood pressure. Will add 5 mg of amlodipine. DVT px: ALPS. PT eval. Might need STR.
[2018-01-16 14:38] VITALS: BP 164/82
--- NOTE | 2018-01-16 16:59 | Cons- Neurology ---
General Information and HPI Consulting Request Date of Consult: 01/16/18 Requested By: Juventino MEREDITH,Marybel History of Present Illness: 77-year-old female who carries a diagnosis of Parkinson's disease She states that she was diagnosed 10 years ago Initially she was placed on carbidopa levodopa and stated that she had a good response More recently she states that she is bothered by involuntary movements she relays may be caused by the medications She has been on a regimen of carbidopa levodopa entacapone She takes medications at least 6 times per day She states that the effect seems to fluctuate and she has "reactions" of movement involuntarily She also has had a recent fall and intermittent dizziness She has been followed by Dr. Mclean and also a neurologist movement specialist at [place] Allergies/Medications Allergies: Coded Allergies: lisinopril (Intermediate, HIVES 01/15/18) Penicillins (VAGINAL DISCHARGE 01/15/18) Home Med List: Acetaminophen (Non-Aspirin Pain Relief) (Unknown Strength) TABLET (Unknown Dose) PO PRN PAIN (Reported) Acetaminophen/Diphenhydramine (Tylenol Pm Ex-Strength Caplet) (Unknown Strength) TABLET (Unknown Dose) PO PRN SLEEP (Reported) Amlodipine Besylate 2.5 MG TABLET 1 TAB PO BID BP (Reported) Aspirin (Ecotrin*) 325 MG TABLET.DR 1 TAB PO PRN PAIN (Reported) Carbidopa/Levodopa (Carbidopa-Levodopa 25-100 Tab) 25 MG-100 MG TABLET 2 TAB PO Q5H PARKINSONS (Reported) Carbidopa/Levodopa/Entacapone (Haejaukow-Lffvvafj-Lupf 150 MG) 37.5 MG-150 MG- 200 MG TABLET 1 TAB PO Q4H PARKINSONS (Reported) Carvedilol 25 MG TABLET 1 TAB PO BID HEART/BP (Reported) Cyanocobalamin (Vitamin B-12) (Vitamin B12) (Unknown Strength) TABLET (Unknown Dose) PO DAILY SUPPLEMENT (Reported) Eszopiclone 2 MG TABLET 2 TAB PO QPM SLEEP (Reported) Levothyroxine Sodium 25 MCG TABLET 1 TAB PO DAILY THYROID (Reported) Pyridoxine HCl (Vitamin B-6) (Unknown Strength) TABLET (Unknown Dose) PO DAILY SUPPLEMENT (Reported) Sertraline HCl 50 MG TABLET 1 TAB PO DAILY MENTAL HEALTH (Reported) Vitamin E Mixed (Vitamin E) (Unknown Strength) TABLET (Unknown Dose) PO DAILY SUPPLEMENT (Reported) Current Medications: Current Medications Sig/Christy Start time Last Medication Dose Route Stop Time Status Admin Acetaminophen 650 MG ONCE ONE 01/16 1315 DC 01/16 PO 01/16 1316 1358 Carbidopa/Levodopa 1.5 TAB Q6H 01/16 1000 AC 01/16 PO 0934 Carvedilol 25 MG BID 01/15 2100 AC 01/16 PO 0934 Enoxaparin Sodium 40 MG DAILY 01/16 0900 CAN SC Entacapone 200 MG Q6H 01/16 1000 CAN PO Influenza Virus 0.5 ML ONCE ONE 01/15 211 DC Vaccine IM 01/16 2116 Levothyroxine Sodium 0.025 MG DAILY AC 01/16 0700 AC 01/16 PO 0636 Omeprazole 20 MG DAILY AC 01/16 1230 AC 01/16 PO 1258 Omeprazole 20 MG DAILY AC 01/16 0700 AC PO Review of Systems Review of Systems: No headache, no visual loss although patient states she has macular degeneration , no hearing loss, weight stable, no chest pains or breathing difficulties, no nausea vomiting, no incontinence, no swelling of extremities, no recent fevers, walks usually with walker Past History Travel History Traveled to [place] past 21 day No Medical History Blood Transfusion Hx: No Neurological: Parkinson's disease EENT: NONE Cardiovascular: hypertension Respiratory: NONE Gastrointestinal: NONE Hepatic: NONE Renal: NONE Musculoskeletal: rheumatoid arthritis Psychiatric: NONE Endocrine: NONE Blood Disorders: NONE Cancer(s): NONE CLINICAL REVIEWER/Reproductive: NONE Surgical History Surgical History: C-SECT,CERVICAL,CHOLY Psychosocial History Where Do You Live? Home Smoking Status: Never Smoked ETOH Use: denies use Functional Ability ADLs Unknown: dressing, eating, toileting, bathing. Ambulation: walker IADLs Unknown: shopping, housework, finances, food prep, telephone, transportation, medication admin. Exam & Diagnostic Data Vital Signs and I&O Vital Signs Date Time Temp Pulse Resp B/P B/P Pulse O2 O2 Flow FiO2 Mean Ox Delivery Rate 01/16 1438 97.6 68 20 164/82 97 01/16 0934 178/80 01/16 0657 97.8 64 18 174/80 93 Room Air 01/16 0054 60 158/70 01/154 60 200/98 01/15 2200 97.2 97 18 200/98 92 Room Air 01/15 1958 98.1 63 20 204/100 94 Room Air 01/16 1912 97.6 78 16 178/82 96 Room Air Intake & Output 01/16 1600 01/16 0800 01/16 0000 Intake Total 300 400 Output Total 250 Balance 300 150 Intake, Oral 300 400 Number 1 Bowel Movements Output, Urine 250 Patient 151 lb 163 lb Weight Weight Bed scale Reported by Patient Measurement Method Physical Exam: Alert and oriented No dysarthria Heart sounds normal no carotid bruits distal pulses intact Extraocular movements full pupils equal reactive fundi benign visual orta intact no facial weakness no facial sensory loss palate tongue and shoulders intact hearing grossly intact Mild rigidity upper and lower extremities No tremor or adventitious movements noted Gross motor strength intact Sensory examination intact to light touch bilaterally Deep tendon reflexes 1+ bilateral Upper extremity coordination intact Walks with rolling walker with no ataxia Last 48 Hours of Lab Results: Laboratory Tests 01/16 01/15 0755 1735 Chemistry Sodium (137 - 145 mmol/L) 139 Potassium (3.5 - 5.1 mmol/L) 3.5 Chloride (98 - 107 mmol/L) 110 H Carbon Dioxide (22 - 30 mmol/L) 22 Anion Gap (5 - 16) 7 BUN (7 - 17 mg/dL) 16 Creatinine (0.5 - 1.0 mg/dL) 0.9 Estimated GFR (>60 ml/min) > 60 BUN/Creatinine Ratio (7 - 25 %) 17.8 Lactic Acid Cancelled Hematology CBC w Diff NO MAN DIFF REQ WBC (4.8 - 10.8 /CUMM) 5.6 RBC (4.20 - 5.40 /CUMM) 3.55 L Hgb (12.0 - 16.0 G/DL) 11.1 L Hct (37 - 47 %) 32.3 L MCV (81.0 - 99.0 FL) 91.1 MCH (27.0 - 31.0 PG) 31.2 H MCHC (33.0 - 37.0 G/DL) 34.2 RDW (11.5 - 14.5 %) 13.9 Plt Count (130 - 400 /CUMM) 284 MPV (7.4 - 10.4 FL) 10.1 Gran % (42.2 - 75.2 %) 68.9 Lymphocytes % (20.5 - 51.1 %) 18.7 L Monocytes % (1.7 - 9.3 %) 6.3 Eosinophils % (0 - 5 %) 5.4 H Basophils % (0.0 - 2.0 %) 0.7 Absolute Granulocytes (1.4 - 6.5 /CUMM) 3.9 Absolute Lymphocytes (1.2 - 3.4 /CUMM) 1.1 L Absolute Monocytes (0.10 - 0.60 /CUMM) 0.4 Absolute Eosinophils (0.0 - 0.7 /CUMM) 0.3 Absolute Basophils (0.0 - 0.2 /CUMM) 0 01/15 01/15 1653 1516 Chemistry Sodium (137 - 145 mmol/L) 137 Potassium (3.5 - 5.1 mmol/L) 3.3 L Chloride (98 - 107 mmol/L) 105 Carbon Dioxide (22 - 30 mmol/L) 23 Anion Gap (5 - 16) 9 BUN (7 - 17 mg/dL) 21 H Creatinine (0.5 - 1.0 mg/dL) 1.0 Estimated GFR (>60 ml/min) 54 L BUN/Creatinine Ratio (7 - 25 %) 21.0 Glucose (65 - 99 mg/dL) 87 Lactic Acid (0.7 - 2.1 mmol/L) 1.2 Calcium (8.4 - 10.2 mg/dL) 9.2 Iron (37 - 170 ug/dL) 85 TIBC (265 - 497 ug/dL) 335 Ferritin (11.1 - 264 ng/mL) 24.1 Total Bilirubin (0.2 - 1.3 mg/dL) 0.6 AST (14 - 36 U/L) 19 ALT (9 - 52 U/L) 7 L Alkaline Phosphatase (<127 U/L) 72 Creatine Kinase (30 - 135 U/L) 150 H Troponin I (< 0.11 ng/ml) < 0.01 Total Protein (6.3 - 8.2 g/dL) 6.4 Albumin (3.5 - 5.0 g/dL) 3.5 Globulin (1.9 - 4.2 gm/dL) 2.9 Albumin/Globulin Ratio (1.1 - 2.2 %) 1.2 Vitamin B12 (239 - 931 pg/mL) 573 Folate (2.76 - 20.0 ng/mL) 10.6 TSH (0.270 - 4.200 uIU/mL) 1.030 Thyroxine (T4) (4.5 - 10.9 ug/dL) 6.0 Coagulation PT (9.4 - 12.5 SEC) 11.8 INR (0.90 - 1.19) 1.08 APTT (25 - 37 SEC) 27 Hematology CBC w Diff NO MAN DIFF REQ WBC (4.8 - 10.8 /CUMM) 8.5 RBC (4.20 - 5.40 /CUMM) 3.54 L Hgb (12.0 - 16.0 G/DL) 10.9 L Hct (37 - 47 %) 32.3 L MCV (81.0 - 99.0 FL) 91.2 MCH (27.0 - 31.0 PG) 30.8 MCHC (33.0 - 37.0 G/DL) 33.8 RDW (11.5 - 14.5 %) 14.1 Plt Count (130 - 400 /CUMM) 277 MPV (7.4 - 10.4 FL) 9.7 Gran % (42.2 - 75.2 %) 81.4 H Lymphocytes % (20.5 - 51.1 %) 10.4 L Monocytes % (1.7 - 9.3 %) 4.7 Eosinophils % (0 - 5 %) 3.2 Basophils % (0.0 - 2.0 %) 0.3 Absolute Granulocytes (1.4 - 6.5 /CUMM) 6.9 H Absolute Lymphocytes (1.2 - 3.4 /CUMM) 0.9 L Absolute Monocytes (0.10 - 0.60 /CUMM) 0.4 Absolute Eosinophils (0.0 - 0.7 /CUMM) 0.3 Absolute Basophils (0.0 - 0.2 /CUMM) 0 Urines Urine Color (YEL,AMB,STR) YEL Urine Clarity (CLEAR) CLEAR Urine pH (5.0 - 8.0) 6.5 Ur Specific [place] (1.001 - 1.035) 1.015 Urine Protein (NEG,<30 MG/DL) NEG Urine Ketones (NEG) 15 H Urine Nitrite (NEG) NEG Urine Bilirubin (NEG) NEG Urine Urobilinogen (0.1 - 1.0 EU/dl) 0.2 Ur Leukocyte Esterase (NEG) TRACE H Ur Microscopic SEDIMENT EXAMINED Urine RBC (0 - 5 /HPF) RARE Urine WBC (0 - 2 /HPF) 3-5 H Ur Epithelial Cells (NONE,FEW) FEW Urine Bacteria (NEG/NONE) MANY H Urine Mucus (FEW,NONE) RARE Urine Hemoglobin (NEG) TRACE-INTACT Urine Glucose (N MG/DL) NEG Imaging/Other Studies: CT head FINDINGS: Generalized parenchymal atrophy of the brain with proportion dilation of the ventricles, sulci, and basilar cisterns. Motion artifact partially obscures evaluation. There are intracranial atherosclerotic calcifications. There is no evidence of acute intracranial hemorrhage or territorial infarction. No abnormal mass effect or midline shift is seen. Guidry to white matter differentiation is well preserved. No extra-axial fluid collections are identified. The ventricles are normal in size. There is no abnormal attenuation within the brain parenchyma. The osseous structures and soft tissues are normal. The mastoid air cells and visualized portions of the paranasal sinuses are well aerated. IMPRESSION: No acute intracranial pathology. Assessment/Plan Assessment: History suggests adventitious movements with high dose carbidopa levodopa At present patient seems to be doing well Recommendations: Keep carbidopa levodopa dosage to no more than 3-4 times per day Patient seems to tolerate dose range of 150 mg L-dopa plus entacapone without causing significant dyskinetic movements Ensure that patient is not taking both Stalevo generic, that is one by mouth with carbidopa levodopa entacapone, and in addition carbidopa levodopa tablets Consult Acknowledgment - Thank you for your consult request.
[2018-01-16 21:33] VITALS: BP 208/90
[2018-01-16 22:43] VITALS: BP 160/70
[2018-01-17 06:35] VITALS: BP 128/72
--- NOTE | 2018-01-17 08:14 | PN- Housestaff ---
Bari Zhang MD,Ami 01/17/18 0813: Subjective Follow-up For: Orthostatis hypotansion Parkinsonism Subjective: Patient visited today, was lying in bed comfortably in no acute distress, was alert and oriented. No fever or chills, no shortness of breathing, no chest pain, no other events. in baseline ambulated with walker. Neurology consulted yesterday and instructed regarding the medications. Blood pressure was high, no orthostatic hypotansion. Planned to increase amlodipine dose Patient requested to be discharged, planned to discharge today Review of Systems Constitutional: Reports: see HPI. Objective Last 24 Hrs of Vital Signs/I&O Vital Signs Date Time Temp Pulse Resp B/P B/P Pulse O2 O2 Flow FiO2 Mean Ox Delivery Rate 01/17 1347 160/90 01/17 1232 67 190/80 01/17 0855 97.9 64 20 128/72 01/17 0855 97.9 64 20 128/72 01/17 0635 97.9 60 20 128/72 95 Room Air 01/16 2243 97.9 60 20 160/70 95 Room Air 01/16 2133 98.3 55 20 208/90 96 Room Air 01/16 2052 64 164/82 01/16 2005 68 164/82 Intake & Output 01/17 1600 01/17 0800 01/17 0000 Intake Total 300 300 Output Total 400 Balance -100 300 Intake, Oral 300 300 Output, Urine 400 Patient 143 lb Weight Physical Exam General Appearance: Alert, Oriented X3, Cooperative, No Acute Distress Skin: No Significant Lesion Skin Temp/Moisture Exam: Warm/Dry Sepsis Skin Exam (color): Normal for Ethnicity HEENT: Atraumatic, EOMI Cardiovascular: Normal S1, Normal S2 Lungs: Clear to Auscultation, Normal Air Movement Abdomen: Soft, No Tenderness Neurological: grossly no change compared to yesterday, improved rigidity Extremities: No Edema Current Medications: Current Medications Sig/Christy Start time Last Medication Dose Route Stop Time Status Admin Acetaminophen 650 MG Q6-PRN PRN 01/17 0530 DCD 01/17 PO 0529 Acetaminophen 650 MG ONCE ONE 01/16 2100 DC 01/16 PO 01/16 2101 2121 Amlodipine Besylate 5 MG ONCE ONE 01/17 1230 DC 01/17 PO 01/17 1231 1232 Amlodipine Besylate 5 MG DAILY 01/16 1845 DCD 01/17 PO 0855 Carbidopa/Levodopa 1.5 TAB Q8 01/16 2200 DCD 01/17 PO 1231 Carbidopa/Levodopa 1.5 TAB Q6H 01/16 1000 DC 01/16 PO 0934 Carvedilol 25 MG BID 01/15 2100 DCD 01/17 PO 0855 Levothyroxine Sodium 0.025 MG DAILY AC 01/16 0700 DCD 01/17 PO 0520 Lorazepam 0.5 MG ONCE ONE 01/16 2200 CAN PO 01/16 2201 Melatonin 3 MG ONCE ONE 01/17 0230 DC 01/17 PO 01/17 023 0229 Omeprazole 20 MG DAILY AC 01/16 1230 DCD 01/16 PO 1258 Omeprazole 20 MG DAILY AC 01/16 0700 DCD PO Last 24 Hrs of Lab/Tani Results Last 24 Hrs of Labs/Mics: Laboratory Tests 01/17/18 0709: Anion Gap 5, Estimated GFR > 60, BUN/Creatinine Ratio 17.5, CBC w Diff NO MAN DIFF REQ, RBC 3.51 L, MCV 92.5, MCH 31.0, MCHC 33.5, RDW 14.3, MPV 10.1, Gran % 72.7, Lymphocytes % 14.8 L, Monocytes % 7.2, Eosinophils % 4.8, Basophils % 0.5 , Absolute Granulocytes 4.9, Absolute Lymphocytes 1.0 L, Absolute Monocytes 0.5 , Absolute Eosinophils 0.3, Absolute Basophils 0 Assessment/Plan Assessment: 77-year-old woman from home past medical history significant for Parkinson's disease, hypertension, hypothyroidism, history of depression brought in by ambulance for intermittent spasmodic involuntary movement of her head trunk and extremities. Noted to be dystonic in ED, her symptoms improved after Benadryl and Cogentin. Labs significant for hypokalemia and mild drop in H&H. Patient was admitted to general medicine floor for management of following conditions: Dystonia This was considered to be secondary to levodopa-induced dyskinesia. neurology was consulted who recommended to adjust the dose of parkinsonsim. Patient was instructed regarding the medication. With improvement patient was on deemed to be stable for discharge. With recommendations to follow with PCP and neurologist. Fall/gait imbalance Differential includd Deconditioning, autonomic dysfunction secondary to Parkinson's, hypokalemia and dehydration. Blood pressure medications were initially held, with improvement of the dyskinesia vital signs were stable and orthostatic hypotension were negative. Blood pressure medications were restarted. Hypertension Blood pressure remained increased, necessitating to increase the home medication of Norvasc to 5 mg. Hypothyroidism continued levothryoxine [facility] was consulted and ruled out GI bleeding, oral PPI was adminstered as prophylaxis for NSAID use. Patient was discharged. Problem List: 1. Dyskinesia 2. Parkinson disease 3. Orthostatic hypotension Pain Ratin Pain Location: None Pain Goal: Pain 4 or less Pain Plan: ANABELLA Tomorrow's Labs & Rationales: ANABELLA Manley MD,Michaelkyaloretta 01/17/18 1424: Attending MD Review Statement Attending Statement Attending MD Statement: examined this patient, discuss w/resident/PA/MANAGER SHIFT, agreed w/resident/PA/MANAGER SHIFT, reviewed EMR data (avail), discussed with nursing, discussed with case mgmt, amended to note Attending Assessment/Plan: Patient seen and examined. Resting comfortably not in any acute distress. No issues overnight. No new complaints this morning. She was seen by the physical therapy service and cleared for discharge home with home physical therapy services. Patient is in agreement with this plan. She looks forward to be discharged today. She has been instructed on how to take her medications as prescribed by the neurology service. During his hospitalization she had systolic blood pressure in the 200s or more than one occasion. She admits to having high blood pressure on occasion at home also admits that her blood pressure does drop. She does have autonomic dysfunction secondary to her Parkinson disease. Her amlodipine was increased from 2.5 mg daily to 5 mg daily during this hospitalization. Recheck her orthostatic blood pressure today. Although she did have a drop in systolic pressure, erect blood pressure is still acceptable and enough to maintain adequate cerebral perfusion. She will continue on the increased dose of amlodipine as an outpatient. She is in agreement with this plan.
[2018-01-17 09:10] LABS: ABSOLUTE BASOPHIL COUNT 0 /CUMM (0.0-0.2); ABSOLUTE EOSINOPHIL COUNT 0.3 /CUMM (0.0-0.7); ABSOLUTE GRANULOCYTE CT 4.9 /CUMM (1.4-6.5); ABSOLUTE MONOCYTE COUNT 0.5 /CUMM (0.10-0.60); BASOPHIL % 0.5 % (0.0-2.0); EOSINOPHIL % 4.8 % (0-5); GRANULOCYTE % 72.7 % (42.2-75.2); HEMATOCRIT 32.5 % (37-47); MEAN CORPUSCULAR HGB CONC 33.5 G/DL (33.0-37.0); MEAN CORPUSCULAR VOLUME 92.5 FL (81.0-99.0); MEAN PLATELET VOLUME 10.1 FL (7.4-10.4); PLATELET COUNT 276 /CUMM (130-400); RBC DISTRIBUTION WIDTH 14.3 % (11.5-14.5); RED BLOOD CELL CT 3.51 /CUMM (4.20-5.40); WHITE BLOOD CELL COUNT 6.7 /CUMM (4.8-10.8)
[2018-01-17] MEDS ORDERED: OMEPRAZOLE20 M2 PO (11:40)
--- NOTE | 2018-01-17 11:47 | Patient Discharge Instructions ---
Discharge Instructions General Discharge Information You were seen/treated for: Dyskinesia Orthostatic hypotension Hypertension Watch for these problems: Severe dizziness, weakness, shortness of breathing, chest pain, rigidity, or worsening of any other symptoms Special Instructions: Please follow-up with your PCP within one mucus discharge. Please also follow with your PCP if needed. PLEASE NOTE: - Keep carbidopa levodopa dosage to no more than 3-4 times per day - DONT take both Stalevo in addition carbidopa levodopa tablets Diet Continue normal diet: No Recommended Diet: Heart Healthy Activity Full Activity/No Limits: No Activity Self Limited: Yes Acute Coronary Syndrome Inclusion Criteria At DC or during hospital stay patient has or had the following: ACS DIAGNOSIS No Discharge Core Measures Meds if any: Prescribed or Continued at Discharge Meds if any: NOT Prescribed or Continued at Discharge Congestive Heart Failure Inclusion Criteria At DC or during hospital stay patient has or had the following: CHF DIAGNOSIS No Discharge Core Measures Meds if any: Prescribed or Continued at Discharge Meds if any: NOT Prescribed or Continued at Discharge Cerebrovascular accident Inclusion Criteria At DC or during hospital stay patient has or had the following: CVA/TIA Diagnosis No Discharge Core Measures Meds if any: Prescribed or Continued at Discharge Meds if any: NOT Prescribed or Continued at Discharge Venous thromboembolism Inclusion Criteria VTE Diagnosis No VTE Type NONE VTE Confirmed by (Test) NONE Discharge Core Measures - Per Current guidelines, there needs to be overlap - treatment for the first 5 days of Warfarin therapy. - If discharged on Warfarin prior to 5 days of - overlap therapy, the patient will need to be - assessed for post discharge needs including - *Post discharge parental anticoagulation - *Warfarin and/or parental anticoagulation education - *Follow up date to check INR post discharge At least 5 days overlap therapy as Inpatient No Meds if any: Prescribed or Continued at Discharge Note: Overlap Therapy is Warfarin and Anticoagulant Meds if any: NOT Prescribed or Continued at Discharge
[2018-01-17] MEDS ORDERED: AMLODIPINE BESYL5 M1 PO (11:57)
[2018-01-17 13:47] VITALS: BP 160/90
--- NOTE | 2018-01-18 16:19 | Discharge Summary ---
Visit Information Visit Dates Admission Date: 01/15/18 Discharge Date: 01/17/18 Hospital Course Course Attending Physician: Levi Manley MD Primary Care Physician: Cynthia Mcneal MD Hospital Course: 77-year-old woman from home past medical history significant for Parkinson's disease, hypertension, hypothyroidism, history of depression brought in by ambulance for intermittent spasmodic involuntary movement of her head trunk and extremities. Noted to be dystonic in ED, her symptoms improved after Benadryl and Cogentin. Labs significant for hypokalemia and mild drop in H&H. Patient was admitted to general medicine floor for management of following conditions: Dystonia This was considered to be secondary to levodopa-induced dyskinesia. neurology was consulted who recommended to adjust the dose of parkinsonsim. Patient was instructed regarding the medication. With improvement patient was on deemed to be stable for discharge. With recommendations to follow with PCP and neurologist. Fall/gait imbalance Differential includd Deconditioning, autonomic dysfunction secondary to Parkinson's, hypokalemia and dehydration. Blood pressure medications were initially held, with improvement of the dyskinesia vital signs were stable and orthostatic hypotension were negative. Blood pressure medications were restarted. Hypertension Blood pressure remained increased, necessitating to increase the home medication of Norvasc to 5 mg. Hypothyroidism continued levothryoxine [facility] was consulted and ruled out GI bleeding, oral PPI was adminstered as prophylaxis for NSAID use. Patient was discharged with recommendations below. Allergies: Coded Allergies: lisinopril (Intermediate, HIVES 01/15/18) Penicillins (VAGINAL DISCHARGE 01/15/18) Disposition Summary Disposition Principal Diagnosis: Dyskinesia Additional Diagnosis: Parkinson's Discharge Disposition: home or self care Discharge Instructions General Discharge Information Code Status: Full Code Patient's Diet: Heart healthy diet Patient's Activity: As tolerated ablation with walker Follow-Up Instructions/Appts: Please follow-up with your PCP within one mucus discharge. Please also follow with your PCP if needed. PLEASE NOTE: - Keep carbidopa levodopa dosage to no more than 3-4 times per day - DONT take both Stalevo in addition carbidopa levodopa tablets Medications at Discharge Discharge Medications: Stop taking the following medications: Amlodipine Besylate (Amlodipine Besylate) 2.5 MG TABLET ORAL TWICE DAILY Qty = 180 Continue taking these medications: Sertraline HCl (Sertraline HCl) 50 MG TABLET 1 Tablet ORAL DAILY Qty = 30 Eszopiclone (Eszopiclone) 2 MG TABLET 2 Tablet ORAL Every night Qty = 30 Comments: NOT GIVEN Levothyroxine Sodium (Levothyroxine Sodium) 25 MCG TABLET 1 Tablet ORAL DAILY Qty = 90 Comments: Last Taken:01/17/18 Time:6AM Carvedilol (Carvedilol) 25 MG TABLET 1 Tablet ORAL TWICE DAILY Qty = 180 Comments: Last Taken:01/17/18 Time:9AM Carbidopa/Levodopa (Carbidopa-Levodopa 25-100 Tab) 25 MG-100 MG TABLET 2 Tablet ORAL Q5H Qty = 360 Carbidopa/Levodopa/Entacapone (Srgjndxwy-Fmqggzfh-Uvji 150 MG) 37.5 MG-150 MG- 200 MG TABLET 1 Tablet ORAL Q4H Qty = 180 Comments: Last Taken:01/16/18 Time:9AM Cyanocobalamin (Vitamin B-12) (Vitamin B12) (Unknown Strength) TABLET Unknown Dose ORAL DAILY Pyridoxine HCl (Vitamin B-6) (Unknown Strength) TABLET Unknown Dose ORAL DAILY Vitamin E Mixed (Vitamin E) (Unknown Strength) TABLET Unknown Dose ORAL DAILY Aspirin (Ecotrin*) 325 MG TABLET.DR 1 Tablet ORAL as needed for PAIN Acetaminophen/Diphenhydramine (Tylenol Pm Ex-Strength Caplet) (Unknown Strength) TABLET Unknown Dose ORAL as needed for SLEEP Acetaminophen (Non-Aspirin Pain Relief) (Unknown Strength) TABLET Unknown Dose ORAL as needed for PAIN Start taking the following new medications: Amlodipine Besylate (Amlodipine Besylate) 5 MG TABLET 5 Milligram ORAL DAILY Qty = 30 Refills = 1 Comments: Last Taken:01/17/18 Time:9AM Omeprazole (Omeprazole) 20 MG CAPSULE.DR 1 Capsule ORAL DAILY Qty = 30 No Refills Comments: NOT GIVEN Copies To: Caridad MEREDITH,Sami Cole; Elizabet MEREDITH,Cynthia Bro Attending MD Review Statement Documenting Attending: Levi Manley MD
== END 2018-01-17 14:14 | disposition home health service (06) | DRG 92 ==
LOC: ERH 13:19 → 2NA 17:57 → ERHI 17:57 → ENTRNSPT 18:58 → 2NA 19:26 → EDTRNSPTSTS 19:36 → CMPTRNSPT 19:51 → 2NA 01-17 08:46 → ENPENDDIS 01-17 12:26 → ENTRNSPT 01-17 13:55 → EDTRNSPTSTS 01-17 14:00 → EDTRNSPT 01-17 14:00 → 2NA 01-17 14:14 → CMPTRNSPT 01-17 14:32
PROVIDERS: Internal Medicine; Physician Assistant; Radiology Vascular & Interventional Radiology
DX: G24.01 Drug induced subacute dyskinesia (principal); G24.02 Drug induced acute dystonia; G20 Parkinson's disease; D64.9 Anemia, unspecified; E86.0 Dehydration; T42.8X5A Adverse effect of antiparkinsonism drugs and other central muscle-tone depressants, initial encounter; M06.9 Rheumatoid arthritis, unspecified; E03.9 Hypothyroidism, unspecified; I10 Essential (primary) hypertension; F32.9 Major depressive disorder, single episode, unspecified; E87.6 Hypokalemia; R26.89 Other abnormalities of gait and mobility; I95.1 Orthostatic hypotension; I25.10 Atherosclerotic heart disease of native coronary artery without angina pectoris; Z95.5 Presence of coronary angioplasty implant and graft; Z88.8 Allergy status to other drugs, medicaments and biological substances; Z88.0 Allergy status to penicillin; Z90.49 Acquired absence of other specified parts of digestive tract
CPT/HCPCS: 2NASP; 36592; 73030-RT; 81001; 82436; 87045; 87086; 93005; 93010; 96374; 96375; 97116-GO; 97161-GP; 97530-GO; J0515; J1200; J1650

== ENCOUNTER 2018-01-22 15:17 | Emergency (ER) | payer OTHER ==
[~2018-01-22] VITALS: Ht 160 cm; Wt 59.0 kg
[~2018-01-22 15:17] MED LIST changes: +AMLODIPINE BES2.5 M1 PO; +AMLODIPINE BESYL5 M1 PO; +ASPIRIN EC325 M2 PO; +CARBIDOPA-LEVO1 EAC7 PO; +CARBIDOPA-LEVO1 EACH PO; +CARVEDILOL25 M1 PO; +ESZOPICLONE2 M1 PO; +LEVOTHYROXINE25 MCG PO; +NON-ASPIRIN PA500 MG PO; +OMEPRAZOLE20 M2 PO; +SERTRALINE HCL50 MG PO; +TYLENOL PM EX-1 EACH PO; +VITAMIN B-650 M2 PO; +VITAMIN B122500 MC1 PO; +VITAMIN E100 UNI2 PO
[2018-01-22 15:42] VITALS: BP 131/83
[2018-01-22 17:04] LABS: ABSOLUTE BASOPHIL COUNT 0 /CUMM (0.0-0.2); ABSOLUTE EOSINOPHIL COUNT 0.5 /CUMM (0.0-0.7); ABSOLUTE GRANULOCYTE CT 6.9 /CUMM (1.4-6.5); ABSOLUTE LYMPH COUNT 0.9 /CUMM (1.2-3.4); ABSOLUTE MONOCYTE COUNT 0.7 /CUMM (0.10-0.60); BASOPHIL % 0.5 % (0.0-2.0); EOSINOPHIL % 5.2 % (0-5); HEMATOCRIT 33.6 % (37-47); MEAN CORPUSCULAR HGB 30.5 PG (27.0-31.0); MEAN CORPUSCULAR HGB CONC 33.4 G/DL (33.0-37.0); MEAN CORPUSCULAR VOLUME 91.3 FL (81.0-99.0); MEAN PLATELET VOLUME 9.7 FL (7.4-10.4); PLATELET COUNT 326 /CUMM (130-400); RBC DISTRIBUTION WIDTH 14.8 % (11.5-14.5); RED BLOOD CELL CT 3.68 /CUMM (4.20-5.40)
--- NOTE | 2018-01-22 17:17 | ED GENERAL ADULT ---
History of Present Illness General Chief Complaint: General Adult Stated Complaint: GENERAL MALAISE Source: patient, family, old records Exam Limitations: no limitations Vital Signs & Intake/Output Vital Signs & Intake/Output Vital Signs Date Time Temp Pulse Resp B/P B/P Pulse O2 O2 Flow FiO2 Mean Ox Delivery Rate 01/22 1542 98.4 62 18 131/83 94 Room Air Room Air ED Intake and Output 01/23 0000 01/22 1200 Intake Total Output Total Balance Patient 130 lb Weight Weight Estimated Measurement Method Allergies Coded Allergies: lisinopril (Intermediate, HIVES 01/15/18) Penicillins (VAGINAL DISCHARGE 01/15/18) Reconcile Medications Acetaminophen (Non-Aspirin Pain Relief) (Unknown Strength) TABLET (Unknown Dose) PO PRN PAIN (Reported) Acetaminophen/Diphenhydramine (Tylenol Pm Ex-Strength Caplet) (Unknown Strength) TABLET (Unknown Dose) PO PRN SLEEP (Reported) Amlodipine Besylate 5 MG TABLET 5 MG PO DAILY HIGH BLOOD PRESSURE Aspirin (Ecotrin*) 325 MG TABLET.DR 1 TAB PO PRN PAIN (Reported) Benztropine Mesylate 1 MG TABLET 1 TAB PO BID WITH CARBADOPA Carbidopa/Levodopa (Carbidopa-Levodopa 25-100 Tab) 25 MG-100 MG TABLET 2 TAB PO Q5H [place]ARKINSONS (Reported) Carbidopa/Levodopa/Entacapone (Nubcpyscn-Idnvuazh-Bqup 150 MG) 37.5 MG-150 MG- 200 MG TABLET 1 TAB PO Q4H [place] (Reported) Carvedilol 25 MG TABLET 1 TAB PO BID HEART/BP (Reported) Cyanocobalamin (Vitamin B-12) (Vitamin B12) (Unknown Strength) TABLET (Unknown Dose) PO DAILY SUPPLEMENT (Reported) Eszopiclone 2 MG TABLET 2 TAB PO QPM SLEEP (Reported) Levothyroxine Sodium 25 MCG TABLET 1 TAB PO DAILY THYROID (Reported) Omeprazole 20 MG CAPSULE.DR 1 CAP PO DAILY STOMACH HEALTH Pyridoxine HCl (Vitamin B-6) (Unknown Strength) TABLET (Unknown Dose) PO DAILY SUPPLEMENT (Reported) Sertraline HCl 50 MG TABLET 1 TAB PO DAILY MENTAL HEALTH (Reported) Vitamin E Mixed (Vitamin E) (Unknown Strength) TABLET (Unknown Dose) PO DAILY SUPPLEMENT (Reported) Triage Note: 77 YEAR OLD FAMLE BIBA FROM HOME HISTORY OF PARKINSONS REPORTS GENERAL MALAISE AND WEAKNESS. PER EMS [facility]BG WAS 72. PT DENIES CP/SOB/N/V/D/ABD PAIN, APPEARS TO IN NO APPARENT DISTRESS. STATES SHE WAS RECENTLY EVALUATED AT THIS FACILITY FOR SIMILAR SYMPTOMS. Triage Nurses Notes Reviewed? yes Onset: Gradual Duration: week(s): (MONTHS), gone now, intermittent Timing: recent history Injury Environment: home Severity: mild, moderate No Modifying Factors: none LMP (ages 10-50): post menopausal : No Patient currently breastfeeds: No HPI: 77 of female past medical history of Parkinson's disease, hypertension, rheumatoid arthritis presents for evaluation of medication side effects. Patient states that she has noticed that after taking her carbidopa levodopa about 30 minutes later she will develop restless legs and involuntary movements of her head and neck and arms. This been going on for several months. She was recently evaluated here and admitted for similar symptoms. Her medications were adjusted. She spoke to see her neurologist on Wednesday. Patient states that her symptoms have persisted despite medication adjustment. She states that she will notice symptoms about a half hour after taking carbidopa levodopa they persist for about 90 minutes and then resolved. Currently she is asymptomatic and feels well. She states that she has also been having insomnia she thinks is also related to her meds. No chest pain shortness of breath one-sided weakness slurred speech changes in vision or any other associated symptoms. (Ari Connelly) Past History Travel History Traveled to [place] past 21 day No Medical History Any Pertinent Medical History? 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 No (Ari Connelly) Review of Systems Review of Systems Constitutional: Reports: no symptoms. EENTM: Reports: no symptoms. Respiratory: Reports: no symptoms. Cardiovascular: Reports: no symptoms. GI: Reports: no symptoms. Genitourinary: Reports: no symptoms. Musculoskeletal: Reports: no symptoms. Skin: Reports: no symptoms. Neurological/Psychological: Reports: see HPI. Hematologic/Endocrine: Reports: no symptoms. Immunologic/Allergic: Reports: no symptoms. All Other Systems: Reviewed and Negative (Ari Connelly) Physical Exam Physical Exam General Appearance: well developed/nourished, no apparent distress, alert, awake Head: atraumatic, normal appearance Eyes: Bilateral: normal appearance, PERRL, EOMI. Ears, Nose, Throat: hearing grossly normal Neck: normal inspection, supple, full range of motion Respiratory: normal breath sounds, chest non-tender, no respiratory distress, lungs clear Cardiovascular: regular rate/rhythm, normal peripheral pulses Peripheral Pulses: 2+ radial (R), 2+ radial (L) Gastrointestinal: normal bowel sounds, soft, non-tender, no organomegaly Back: normal inspection, normal range of motion, no vertebral tenderness Extremities: normal inspection, normal range of motion, no edema Neurologic/Psych: no motor/sensory deficits, awake, alert, oriented x 3, normal gait Skin: intact, normal color, warm/dry Lymphatic: no anterior cervical connie Core Measures ACS in differential dx? No CVA/TIA Diagnosis: No Sepsis Present: No Sepsis Focused Exam Completed? No (Ari Connelly) Progress Differential Diagnoses I considered the following diagnoses in my evaluation of the patient: [ Medication side effect, electrolyte abnormality, medication withdrawal, Parkinson's disease progression Plan of Care: Orders Procedure Date/time Status URINALYSIS 01/22 1525 Complete TROPONIN LEVEL 01/22 1525 Complete COMPREHENSIVE METABOLIC PANEL 01/22 1525 Complete CBC WITHOUT DIFFERENTIAL 01/22 1525 Complete Laboratory Tests 01/22/ 1643: Anion Gap 8, Estimated GFR > 60, BUN/Creatinine Ratio 22.5, Glucose 98, Calcium 9.2, Total Bilirubin 0.5, AST 20, ALT 9, Alkaline Phosphatase 79, Troponin I < 0.01, Total Protein 6.8, Albumin 3.8, Globulin 3.0, Albumin/Globulin Ratio 1.3, CBC w Diff NO MAN DIFF REQ, RBC 3.68 L, MCV 91.3, MCH 30.5, MCHC 33.4, RDW 14.8 H, MPV 9.7, Gran % 77.0 H, Lymphocytes % 9.9 L, Monocytes % 7.4, Eosinophils % 5.2 H, Basophils % 0.5, Absolute Granulocytes 6.9 H, Absolute Lymphocytes 0.9 L, Absolute Monocytes 0.7 H, Absolute Eosinophils 0.5, Absolute Basophils 0 01/22/18 1632: Urine Color YEL, Urine Clarity CLEAR, Urine pH 7.0, Ur Specific [place] 1.015, Urine Protein NEG, Urine Ketones NEG, Urine Nitrite NEG, Urine Bilirubin NEG, Urine Urobilinogen 0.2, Ur Leukocyte Esterase NEG, Ur Microscopic EXAM NOT REQUIRED, Urine Hemoglobin NEG, Urine Glucose NEG PT Seen and evaluated. Currently she is asymptomatic. She's been reporting symptoms of restless legs and involuntary movements about a half hour after taking her carbidopa levodopa. Symptoms lasted 30 minutes and then resolved. This been going on for several months she was recently hospitalized here for similar symptoms. She is neurologically intact. Vital signs are stable. Basic blood work was obtained does not show any acute findings. She's following up with neurology on Wednesday. Patient was treated in the emergency department with congENTIN with good effect. She'll be given a prescription of CONGENTIN 1MG to take with carbidopa levodopa. Advised that she should rest and medially after taking her carbidopa levodopa to ensure that she will not falling get injured. Discussed return precautions. Follow-up with neurology on Wednesday as scheduled. Case discussed with Dr. REDDY and he agrees. Initial ED EKG: none (Ari Connelly) Departure Departure Disposition: HOME OR SELF CARE Condition: Stable Clinical Impression Primary Impression: Medication side effects Referrals: Elizabet MEREDITH,Cynthia Bro (PCP/Family) Additional Instructions: Follow-up with your neurologist on Wednesday as scheduled. Take one dose of congenTIN with each dose of carbidopa levodopa. Avoid physical ACTIVITY after taking the carbidopa levodopa to avoid falls. Monitor symptoms and return with any concerns Departure Forms: Customer Survey General Discharge Information Prescriptions: Current Visit Scripts Benztropine Mesylate 1 TAB PO BID #30 TAB (Ari Connelly) PA/I&C TECHNICIAN Co-Sign Statement Statement: ED Attending supervision documentation- x I saw and evaluated the patient. I have also reviewed all the pertinent lab results and diagnostic results. I agree with the findings and the plan of care as documented in the PA's/I&C TECHNICIAN's documentation. [] I have reviewed the ED Record and agree with the PA's/I&C TECHNICIAN's documentation. [] Additions or exceptions (if any) to the PAs/I&C TECHNICIAN's note and plan are summarized below: [] (Nicole MEREDITH,Raheel) Critical Care Note Critical Care Note Critical Care Time: non-applicable (Dante MOMIN,Ari)
[2018-01-22] MEDS ORDERED: BENZTROPINE MESY1 M1 PO (17:40)
== END 2018-01-22 19:22 ==
LOC: ERH 15:17
PROVIDERS: Physician Assistant Medical
DX: T50.991A Poisoning by other drugs, medicaments and biological substances, accidental (unintentional), initial encounter (principal)
CPT/HCPCS: 81003

== ENCOUNTER 2018-05-20 13:17 | Observation (INO) | payer OTHER, MEDICARE ==
[~2018-05-20] VITALS: Ht 157.5 cm; Wt 63.1 kg
[~2018-05-20 13:17] MED LIST changes: +BENZTROPINE MESY1 M1 PO
[2018-05-20 13:54] LABS: ABSOLUTE BASOPHIL COUNT 0 /CUMM (0.0-0.2); ABSOLUTE EOSINOPHIL COUNT 0.2 /CUMM (0.0-0.7); ABSOLUTE GRANULOCYTE CT 5.1 /CUMM (1.4-6.5); ABSOLUTE LYMPH COUNT 0.8 /CUMM (1.2-3.4); ABSOLUTE MONOCYTE COUNT 0.5 /CUMM (0.10-0.60); BASOPHIL % 0.3 % (0.0-2.0); EOSINOPHIL % 3.3 % (0-5); GRANULOCYTE % 76.7 % (42.2-75.2); HEMATOCRIT 32.6 % (37-47); MEAN CORPUSCULAR HGB CONC 33.5 G/DL (33.0-37.0); MEAN CORPUSCULAR VOLUME 86.3 FL (81.0-99.0); MEAN PLATELET VOLUME 8.9 FL (7.4-10.4); PLATELET COUNT 430 /CUMM (130-400); RBC DISTRIBUTION WIDTH 14.4 % (11.5-14.5); RED BLOOD CELL CT 3.78 /CUMM (4.20-5.40); WHITE BLOOD CELL COUNT 6.7 /CUMM (4.8-10.8)
--- NOTE | 2018-05-20 14:21 | RADIOLOGY REPORT ---
EXAMINATION:\H\ \N\XR CHEST CLINICAL INFORMATION: Weakness and hypotension. COMPARISON: None. TECHNIQUE: A portable AP 80 degrees semiupright view of the chest was obtained. FINDINGS: The lung orta are well-expanded bilaterally. There are increased markings at the left base, which may be consistent with developing consolidation or atelectasis. The cardiac silhouette is mildly prominent. The aortic arch is calcified and unfolded. There are no pleural effusions. The central pulmonary vasculature appears normal. There are sequelae of a left shoulder arthroplasty. The right shoulder appears to be inferiorly dislocated. IMPRESSION: 1. There is patchy opacification at the left base which may be consistent with developing consolidation. Correlate clinically. 2. The right shoulder appears to be inferiorly dislocated.
--- NOTE | 2018-05-20 14:33 | ED GENERAL ADULT ---
History of Present Illness General Chief Complaint: General Adult Stated Complaint: PT BP WAS TO LOW Source: patient, family (DAUGHTER) Exam Limitations: no limitations Vital Signs & Intake/Output Vital Signs & Intake/Output Vital Signs Date Time Temp Pulse Resp B/P B/P Pulse O2 O2 Flow FiO2 Mean Ox Delivery Rate 05/20 1836 97.6 70 18 137/86 97 Room Air 05/20 1556 97.6 66 18 144/63 97 Room Air 05/20 1459 94 Room Air 05/20 1328 95.6 78 20 100/57 93 Room Air Triage Note: SENT BY [facility] FOR LOW O2 SAT AND HYPOTENSION, DISCHARGED FROM [facility] YESTERDAY (CHF) STATES, "THEY CHANGED MY MEDICATION", C/O R SHOULDER PAIN, WEAKNESS, DENIES SOB OR CHEST PAIN. Triage Nurses Notes Reviewed? yes Onset: Abrupt Duration: day(s): (1), continues in ED, getting worse Timing: single episode today Injury Environment: home Severity: mild, moderate Severity Numbers: 6 No Modifying Factors: none Associated Symptoms: back pain LMP (ages 10-50): post menopausal, unknown : No Patient currently breastfeeds: No HPI: 77 Y/O female history of Parkinson's disease and newly diagnosed CHF presents for evaluation of hypotension and low oxygen saturation. Patient was released from the hospital yesterday after a CHF exacerbation. She was started on Lasix for the first time. She is currently taking 20 mg twice a day. She states that her visiting nurse took her blood pressure today and that it was 80s over 40s so she was referred to the hospital. Patient states her only complaint is that she feels a little weak and has some pain in her right upper back. The pain is worse with deep inspiration. She denies shortness of breath or cough. She has no chest pain lower extremity edema or fever. No hemoptysis. (Dante MOMIN,Ari) Allergies Coded Allergies: Iodinated Contrast- Oral and IV Dye (Intermediate, hives 05/20/18) lisinopril (Intermediate, HIVES 01/15/18) latex (Mild, hives 05/20/18) Penicillins (VAGINAL DISCHARGE 01/15/18) Reconcile Medications Acetaminophen (Non-Aspirin Pain Relief) (Unknown Strength) TABLET (Unknown Dose) PO PRN PAIN (Reported) Acetaminophen/Diphenhydramine (Tylenol Pm Ex-Strength Caplet) (Unknown Strength) TABLET (Unknown Dose) PO PRN SLEEP (Reported) Carbidopa/Levodopa (Carbidopa-Levodopa 25-100 Tab) 25 MG-100 MG TABLET 2 TAB PO [id number] PRN [place]SONS (Reported) Carbidopa/Levodopa (Carbidopa-Levodopa 25-100 Tab) 25 MG-100 MG TABLET 0.5 TAB PO PRN [place] (Reported) Carvedilol 25 MG TABLET 1 TAB PO BID HEART/BP (Reported) Cholecalciferol (Vitamin D3) (Vitamin D) 1,000 UNIT TABLET 1 TAB PO DAILY SUPPLEMENT (Reported) Cyanocobalamin (Vitamin B-12) (Vitamin B12) (Unknown Strength) TABLET (Unknown Dose) PO DAILY SUPPLEMENT (Reported) Docusate Sodium (Colace) 100 MG CAPSULE 1 CAP PO DAILY STOOL SOFTENER ( Reported) Doxycycline Hyclate 100 MG TABLET 1 TAB PO BID PNA Furosemide (Lasix) 20 MG TABLET 1 TAB PO BID DIURETIC (Reported) Levothyroxine Sodium 25 MCG TABLET 1 TAB PO 0500 THYROID (Reported) Naproxen Sodium (Aleve) 220 MG TABLET 1 TAB PO BID PAIN/INFLAMMATION ( Reported) Vitamin E Mixed (Vitamin E) 1,000 UNIT CAPSULE 1 CAP PO DAILY SUPPLEMENT ( Reported) Zolpidem Tartrate (Ambien) 5 MG TABLET 1 TAB PO QPM SLEEP (Reported) (Bran Eden DO) Past History Travel History Traveled to [place] past 21 day No Medical History Any Pertinent Medical History? 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 No (Ari Connelly) Review of Systems Review of Systems Constitutional: Reports: weakness. EENTM: Reports: no symptoms. Respiratory: Reports: see HPI (RIB PAIN). Cardiovascular: Reports: no symptoms. GI: Reports: no symptoms. Genitourinary: Reports: no symptoms. Musculoskeletal: Reports: no symptoms. Skin: Reports: no symptoms. Neurological/Psychological: Reports: no symptoms. Hematologic/Endocrine: Reports: no symptoms. Immunologic/Allergic: Reports: no symptoms. All Other Systems: Reviewed and Negative (Ari Connelly) Physical Exam Physical Exam General Appearance: well developed/nourished, no apparent distress, alert, awake Head: atraumatic, normal appearance Eyes: Bilateral: normal appearance, PERRL, EOMI. Ears, Nose, Throat: hearing grossly normal Neck: normal inspection, supple, full range of motion Respiratory: normal breath sounds, chest non-tender, no respiratory distress, lungs clear Cardiovascular: regular rate/rhythm, normal peripheral pulses Peripheral Pulses: 2+ radial (R), 2+ radial (L) Gastrointestinal: normal bowel sounds, soft, non-tender, no organomegaly Back: normal inspection, normal range of motion, no vertebral tenderness Extremities: normal inspection, normal range of motion, no edema Neurologic/Psych: no motor/sensory deficits, awake, alert, oriented x 3, normal gait, normal mood/affect Skin: intact, warm/dry, pallor Lymphatic: no anterior cervical connie Core Measures ACS in differential dx? No CVA/TIA Diagnosis: No Sepsis Present: No Sepsis Focused Exam Completed? No (Ari Connelly) Progress Differential Diagnoses I considered the following diagnoses in my evaluation of the patient: [ Dehydration, electrolyte normality, sepsis, PE, pneumonia, UTI, CHF exacerbatioN Plan of Care: Orders Procedure Date/time Status Heart Healthy Diet 05/21 B Active Patient Data 05/[address] in observation 05/20 1856 Active ED Holding Orders 05/20 1856 Active Vital Signs 05/20 1856 Active Code Status 05/20 1856 Active CTA CHEST-PULMONARY EMBOLISM 05/20 1614 Active Add-on Test (ER Only) 05/20 1450 Active BLOOD CULTURE 05/20 1422 Active D-DIMER 05/20 1344 Complete MISTAKE 05/20 1335 Active URINALYSIS 05/20 1335 Complete TROPONIN LEVEL 05/20 1335 Complete LACTIC ACID 05/20 1335 Complete COMPREHENSIVE METABOLIC PANEL 05/20 1335 Complete CBC WITHOUT DIFFERENTIAL 05/20 1335 Complete B-TYPE NATRIURETIC PEP (BNP) 05/20 1335 Complete EKG 05/20 1330 Active Laboratory Tests 05/20/18 1824: Urine Color YEL, Urine Clarity HAZY H, Urine pH 6.5, Ur Specific [place] 1.015, Urine Protein TRACE H, Urine Ketones NEG, Urine Nitrite NEG, Urine Bilirubin NEG, Urine Urobilinogen 0.2, Ur Leukocyte Esterase TRACE H, Ur Microscopic SEDIMENT EXAMINED, Urine RBC 1-3, Urine WBC 5-10 H, Ur Epithelial Cells MANY H , Urine Bacteria MOD H, Hyaline Casts 15-25 H, Granular Casts RARE H, Urine Hemoglobin NEG, Urine Glucose NEG 05/20/18 1635: Lactic Acid Cancelled 05/20/18 1344: Anion Gap 8, Estimated GFR 40 L, BUN/Creatinine Ratio 16.2, Glucose 110 H, Lactic Acid 1.7, Calcium 9.6, Total Bilirubin 0.4, AST 15, ALT 12, Alkaline Phosphatase 77, Troponin I < 0.01, Fmy-I-Dyrclwyyprz Pept 3130 H, Total Protein 6.7, Albumin 3.6, Globulin 3.1, Albumin/Globulin Ratio 1.2, D-Dimer High Sensitivty 1732 H 05/20/18 1335: CBC w Diff NO MAN DIFF REQ, RBC 3.78 L, MCV 86.3, MCH 29.0, MCHC 33.5, RDW 14.4 , MPV 8.9, Gran % 76.7 H, Lymphocytes % 12.7 L, Monocytes % 7.0, Eosinophils % 3.3, Basophils % 0.3, Absolute Granulocytes 5.1, Absolute Lymphocytes 0.8 L, Absolute Monocytes 0.5, Absolute Eosinophils 0.2, Absolute Basophils 0 Microbiology 05/20 1600 BLOOD: Blood Culture - RECD 05/20 1532 BLOOD: Blood Culture - RECD Patient is here for evaluation of low blood pressure right upper shoulder pain and weakness. On initial evaluation of blood pressure is 100/60. Oxygen saturation 90%. Labs including blood cultures ordered chest x-ray ordered. Blood work shows a creatinine of 1.3 which is slightly elevated for the patient. She is also very orthostatic dropping her pressure from 170s systolic to 140 systolic. IV fluids were ordered. She may have been slightly over diuresed. She denies dizziness or lightheadedness no presyncope no headaches. She has no chest pain. Initial EKG is stable. Troponin is negative. Chest x-ray suggests a developing pneumonia on the left side. Patient has no elevated white blood count she denies a cough. Her d-dimer is significant elevated to [address] will be ordered. Patient was medicated here with Rocephin and Zithromax. She'll be given a prescription of doxycycline to go home with. Patient is very adamant about not staying in the hospital. It is difficult to get her to do additional testing. She has no chest pain. Considered ordering a repeat EKG and troponin the patient is against the idea she rather just go home after the CTA as long as it is negative. 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 Case was discussed with Dr. Eden HE agrees WITH the plan. Patient was signed out to Dr. Eden pending CTA. Patient will be discharged home with pressure and for doxycycline to cover her pneumonia. Diagnostic Imaging: Viewed by Me: Radiology Read. Discussed w/RAD: Radiology Read. Radiology Impression: PATIENT: ALTAF MATOS PRESENT AGE: 77 PATIENT ACCOUNT NO: [id number] : 41 LOCATION: [facility] ORDERING PHYSICIAN: Ari MOMIN SERVICE DATE: 05/20/18 EXAM TYPE: RAD - XRY- CHEST XRAY, SINGLE VIEW EXAMINATION:\\H\\ \\N\\XR CHEST CLINICAL INFORMATION: Weakness and hypotension. COMPARISON: None. TECHNIQUE: A portable AP 80 degrees semiupright view of the chest was obtained. FINDINGS: The lung orta are well- expanded bilaterally. There are increased markings at the left base, which may be consistent with developing consolidation or atelectasis. The cardiac silhouette is mildly prominent. The aortic arch is calcified and unfolded. There are no pleural effusions. The central pulmonary vasculature appears normal. There are sequelae of a left shoulder arthroplasty. The right shoulder appears to be inferiorly dislocated. IMPRESSION: 1. There is patchy opacification at the left base which may be consistent with developing consolidation. Correlate clinically. 2. The right shoulder appears to be inferiorly dislocated. DICTATED BY: Mirza Espinoza MD DATE/TIME DICTATED:05/20/181412 MENTAL HEALTH DIRECTOR:LINDA DATE/TIME TRANSCRIBED:05/20/181412 CONFIDENTIAL, DO NOT COPY WITHOUT APPROPRIATE AUTHORIZATION. <Electronically signed in Other Vendor System> SIGNED BY: Mirza Espinoza MD 05/20/18 5851 Initial ED EKG: normal sinus rhythm, LVH, AGE INDETERMINANT ANT INFARCT Prior EKG: unchanged Hand-Off Endorsed To: Bran Eden DO Endorsed Time: 1710 Pending: CT (Ari Connelly) Departure Departure Disposition: STILL A PATIENT Condition: Stable Clinical Impression Primary Impression: Pneumonia Qualifiers: Pneumonia type: due to unspecified organism Laterality: unspecified laterality Lung location: unspecified part of lung Qualified Code: J18.9 - Pneumonia, unspecified organism Referrals: Elizabet MEREDITH,Cynthia Bro (PCP/Family) Additional Instructions: Take antibiotics as directed for full course. Tylenol for pain or fevers. Follow-up with your doctor as soon as possible. Monitor symptoms return with any concerns. Departure Forms: Customer Survey General Discharge Information Prescriptions: Current Visit Scripts Doxycycline Hyclate 1 TAB PO BID #20 TAB (Ari Connelly) Observation Note Spoke With: Barry MEREDITH,Cezar Physician Advisor Notified: BRAN EDEN DO Place Patient In: Non-ED OBS Care Area Rationale for Observation: My rational for observation is as follows [the patient needs to be placed in observation for VQ scan in the a.m., IV antibiotics, reevaluation]. PA/SLAB INSPECTOR Co-Sign Statement Statement: ED Attending supervision documentation- [x] I saw and evaluated the patient. I have also reviewed all the pertinent lab results and diagnostic results. I agree with the findings and the plan of care as documented in the PA's/SLAB INSPECTOR's documentation. [] I have reviewed the ED Record and agree with the PA's/SLAB INSPECTOR's documentation. [] Additions or exceptions (if any) to the PAs/SLAB INSPECTOR's note and plan are summarized below: [] (Bran Eden DO) Critical Care Note Critical Care Note Critical Care Time: non-applicable (Ari Connelly)
[2018-05-20] MEDS ORDERED: DOXYCYCLINE HY100 M4 PO (17:06)
[2018-05-20] MEDS ORDERED: LASIX20 M1 PO (18:51)
[2018-05-20] MEDS ORDERED: ALEVE220 M2 PO (18:53)
[2018-05-20] MEDS ORDERED: COLACE100 M1 PO (18:53)
[2018-05-20] MEDS ORDERED: VITAMIN D1000 UNIT PO (18:54)
[2018-05-20] MEDS ORDERED: VITAMIN E1000 UNI1 PO (18:55)
[2018-05-20] MEDS ORDERED: AMBIEN5 M1 PO (18:55)
[2018-05-20] MEDS ORDERED: CARBIDOPA-LEVO1 EAC7 PO (18:58)
--- NOTE | 2018-05-20 19:09 | History & Physical ---
Rubina Posey 05/20/18 1909: General Information and HPI History of Present Illness: 77 YO female with PMHx. of Parkinson's disease, HTN, Hypothyroidism, Depresion and newly diagnosed CHF presented to the ED with complaints of "weakness" over the past day after a recent hospitalization of 3 days at [facility] for a CHF exacerbation. Patient states she was started on a new prescription for Lasix from discharge. Patient therefore states that this morning she started to feel a little weak and that her blood pressure was low after being read by the [facility] nurse. Patient also mentions she has been experiencing chronic right upper back pain, with some acute flares over the past few weeks. Patient mentions the right upper back pain in non-tender with no radiation. Patient further mentions decreased range of motion in her right shoulder. Patient also mentions she had a few loose stools after leaving the hospital but has been since having normal bowel movements. Patient otherwise denies any falls, syncopal episodes, dizziness, lightheadedness, shortness of breath, cough, chest pain, fatigue, fevers, chills, and melena. Patient is a former smoker who smoked only occasionally and quit more than 20 years ago. Patient follows Dr. Mcneal (PCP). Patient was last at [facility] on January 18, 2018. Allergies/Medications Allergies: Coded Allergies: Iodinated Contrast- Oral and IV Dye (Intermediate, hives 05/20/18) lisinopril (Intermediate, HIVES 01/15/18) latex (Mild, hives 05/20/18) Penicillins (VAGINAL DISCHARGE 05/20/18) Home Med list Acetaminophen (Non-Aspirin Pain Relief) (Unknown Strength) TABLET (Unknown Dose) PO PRN PAIN (Reported) Acetaminophen/Diphenhydramine (Tylenol Pm Ex-Strength Caplet) (Unknown Strength) TABLET (Unknown Dose) PO PRN SLEEP (Reported) Carbidopa/Levodopa (Carbidopa-Levodopa 25-100 Tab) 25 MG-100 MG TABLET 2 TAB PO O3TLXHON PRN PARKINSONS (Reported) Carbidopa/Levodopa (Carbidopa-Levodopa 25-100 Tab) 25 MG-100 MG TABLET 0.5 TAB PO PRN PARKINSONS (Reported) Carvedilol 25 MG TABLET 1 TAB PO BID HEART/BP (Reported) Cholecalciferol (Vitamin D3) (Vitamin D) 1,000 UNIT TABLET 1 TAB PO DAILY SUPPLEMENT (Reported) Cyanocobalamin (Vitamin B-12) (Vitamin B12) (Unknown Strength) TABLET (Unknown Dose) PO DAILY SUPPLEMENT (Reported) Docusate Sodium (Colace) 100 MG CAPSULE 1 CAP PO DAILY STOOL SOFTENER ( Reported) Furosemide (Lasix) 20 MG TABLET 1 TAB PO BID DIURETIC (Reported) Levothyroxine Sodium 25 MCG TABLET 1 TAB PO 0500 THYROID (Reported) Naproxen Sodium (Aleve) 220 MG TABLET 1 TAB PO BID PAIN/INFLAMMATION ( Reported) Vitamin E Mixed (Vitamin E) 1,000 UNIT CAPSULE 1 CAP PO DAILY SUPPLEMENT ( Reported) Zolpidem Tartrate (Ambien) 5 MG TABLET 1 TAB PO QPM SLEEP (Reported) Past History Travel History Traveled to [place] past 21 day No Medical History Neurological: Parkinson's disease EENT: NONE Cardiovascular: CHF, hypertension Respiratory: NONE Gastrointestinal: NONE Hepatic: NONE Renal: NONE Musculoskeletal: rheumatoid arthritis Psychiatric: NONE Endocrine: NONE Blood Disorders: NONE Cancer(s): NONE ORDER PROCESSING SPECIALIST/Reproductive: NONE Surgical History Surgical History: C-SECT,CERVICAL,CHOLY Past Family/Social History Psychosocial History ETOH Use: denies use Functional Ability ADLs Unknown: dressing, eating, toileting, bathing. Ambulation: walker IADLs Unknown: shopping, housework, finances, food prep, telephone, transportation, medication admin. Review of Systems Review of Systems Constitutional: Reports: weakness. Denies: chills, fever, malaise. Cardiovascular: Denies: chest pain, edema, orthopena, palpitations, peripheral edema. Respiratory: Denies: cough, hemoptysis, orthopnea, short of breath. GI: Reports: diarrhea. Denies: abdominal pain, constipation, melena. Musculoskeletal: Reports: back pain, joint pain, muscle pain. Neurological/Psychological: Reports: depressed. Denies: ataxia. Exam & Diagnostic Data Last 24 Hrs of Vital Signs/I&O Vital Signs Date Time Temp Pulse Resp B/P B/P Pulse O2 O2 Flow FiO2 Mean Ox Delivery Rate 05/20 1836 97.6 70 18 137/86 97 Room Air 05/20 1556 97.6 66 18 144/63 97 Room Air 05/20 1459 94 Room Air 05/20 1328 95.6 78 20 100/57 93 Room Air Intake & Output 05/20 1600 05/20 0800 05/20 0000 Intake Total Output Total Balance Patient 137 lb Weight Weight Reported by Patient Measurement Method Physical Exam General Appearance Alert, Oriented X3, Cooperative, No Acute Distress Skin No Rashes, No Breakdown HEENT Atraumatic Neck Supple, No JVD Cardiovascular Regular Rate, Normal S1, Normal S2 Lungs Clear to Auscultation Abdomen Soft, No Tenderness Neurological Normal Speech, Sensation Intact, waddling gait with walker assistance due to parkinsons disease, right upper extremity pain, right upper back pain and right shoulder pain; no tenderness to palpation in either region; dec. ROM in right shoulder Extremities No Edema, Normal Pulses Assessment/Plan Assessment: XRY-CHEST XRAY - 1. There is patchy opacification at the left base which may be consistent with developing consolidation. Correlate clinically. 2. The right shoulder appears to be inferiorly dislocated. 77 YO F with PMHx. of Parkinson's disease, HTN, Hypothyroidism, Depresion and newly diagnosed CHF presented to the ED with complaints of "weakness" x1 day. Patient received NS bolus in the ER and Doxycycline IV. Labs on admission: UA (+) BUN 21 Cr 1.3 D-Dimer 1732 pBNP 3130 WBC 6.7 H/H 10.9/32.6 Etiology in this case with a history of recent hospitalization at [facility] and signs /symptoms of hypotension, decreased oxygen saturations on presentation, and chest x-ray indicative of consolidation in the left lung base is likely consistent with a pneumonia, community-acquired origin. Other associated issues include acute kidney injury with elevated creatinine from baseline, likely related to recent diuretic usage and d-dimer elevation suggestive of an acute PE /DVT. #Pneumonia, Community-Acquired -Admitted to general medicine for observation and managment of vitals -CXR suggestive for consolidation in left lung base -Azithromycin + Ceftriaxone -Follow up Blood Cx. #RAMIREZ due to prerenal -Cr 1.3 (elevated from baseline) -Pt. started on Lasix after discharge from [facility], likely acute kidney injury related to diuresis -UA + Leukocyte Esterase #Pulmonary embolism, elevated D-dimer, f/u V/Q Scan -Heparin IV Bolus -VQ Scan -MARANDA performed in ED, negative result #Home medications -Continue home medications as required -Levothyroxine 0.025 mg FC DVT PPx. Status: Observation As Ranked By This Provider Problem List: 1. Pneumonia Qualifiers Pneumonia type: due to unspecified organism Laterality: unspecified laterality Lung location: unspecified part of lung Qualified Code: J18.9 - Pneumonia, unspecified organism 2. Acute kidney injury 3. Pulmonary embolism Observation Initial Note - I have personally examined ALTAF MATOS on 05/20/18 at 2052. The disposition of ALTAF MATOS is uncertain at this time and before a determination can be made, she requires a period of observation for the following reasons [Pneumonia, RAMIREZ, PE] Core Measures/Misc (06/13) Acute Coronary Syndrome ACS Diagnosis: No Congestive Heart Failure Congestive Heart Failure Diagnosis No Cerebrovascular Accident CVA/TIA Diagnosis: No VTE (View Protocol) VTE Risk Factors Acute Medical Illness No Mechanical VTE Prophylaxis d/t N/A MechProphylax Ordered No VTE Pharm Prophylaxis d/t NA PharmProphylax ordered Sepsis (View protocol) Sepsis Present: No If YES complete Sepsis Event Note If YES complete Sepsis Event Note Clifford Dickey 05/20/182027: Core Measures/Misc (06/13) Sepsis (View protocol) If YES complete Sepsis Event Note If YES complete Sepsis Event Note Resident Review Statement Resident Statement: examined this patient, discussed with internet marketing analyst, agreed with internet marketing analyst, discussed with family, reviewed EMR data (avail), reviewed images, amended to note Other Findings: Ms Matos is a 77 year old woman w/ a past history of CHF, hypertension, hypothyroidism, depression Parkinson's disease(started on levodopa/carbidopa), rheumatoid arthritis, last admission to [facility] for Parkinson's 2017-01/18/2018, recent dc from [facility] 05/16-05/19 for dx of CHF, sent from [facility] with a chief concern of hypoxemia and hypotension. She was recently started on furosemide 20 mg daily, for a diagnosis of CHF at [facility]. Reported blood pressure 80/40, while at the A on the am of admission. Reported to have increased weakness and pain in right shoulder region, which is exacerbated on deep inspiration. No dyspnea, cough, chest pain, palpitations. No fever, or chills. No dysuria, abdominal pain. No hemoptysis. No pedal edema, melena or bleeding per rectum. Compliant with her medications. No h/o of malignancy. No prolonged immobility. At the time of her arrival temperature 95.6, pulse rate 78, respiration 20, blood pressure 100/57 (improved to 137/86), 93-97% on room air. General Exam: AAOx3, No acute distress, mucus membranes dry; Skin: No rashes, no breakdown;HEENT: PERRLA, EOMI;Neck: Supple, No JVD ; No cervical lymphadenopathy ;CVS: Reg Rate, Normal S1,S2, No MGR;Resp: Normal air entry, no ronchi/rales; Abdomen: Soft, No tenderness, Normal Bowel Sounds;Neuro: Normal Speech, Strength 5/5 b/l x 4 extremities, Sensation intact, CN III-XII NL, Reflexes 2+; Extremities: No cyanosis, no pedal edema, right shoulder pain on passive abduction of right upper extremity. Pertinent lab findings: WBC 6.7 (76% granulocytes), hemoglobin 10.9 (baseline 11), MCV 86.3, platelet count 430 (reactive) Sodium 138, potassium 4.4, bicarbonate 25, anion gap 8. Renal function-BUN 21, creatinine 1.3 (baseline 0.8) Lactic acid 1.7 Liver chemistries-AST 15, ALT 12, alkaline phosphatase 77 ProBNP 3130 D-dimer 1732 Urinalysis-hyalin casts 15-25 (likely dehydration), moderate bacteria, many epithelial cells, WBC 5-10, with trace leukocyte esterase, negative nitrites. Chest x-ray revealed 1. There is patchy opacification at the left base which may be consistent with developing consolidation. Correlate clinically. 2. The right shoulder appears to be inferiorly dislocated. Problem list: -Community-acquired pneumonia -Elevated d-dimer, r/o PE, DVT -Shoulder dislocation (inferior)-chronic -Acute kidney injury(likely prerenal) -h/o Parkinsons disease -Thrmombocytosis Etiology in her case of acute decompensation especially low BP, and lethargy is likely multifactorial at this time; likely overdiuresis in a newly diagnosis of CHF, and diarrhea causing hypovolemia, leading to her current clinical condition. This may have led her to have acute kidney injury. She was also found to have slightly elevated d-dimer which can be attributed to activation of ADH secretion, leading to slightly elevated d-dimer, that said venous thromboembolism needs to be ruled out. In regards to this vague radiological finding of opacity on the left lower lung lobe, could be considered as possible pneumonia without any clear clinical signs supporting the diagnosis. She has chronic dislocation of shoulder, with no neurological changes. Plan: #Supplemental oxygen #Follow CBCs with differential, serum chemistry #Check blood cultures, sputum cultures and Gram stain #Check urine antigen test for strep pneumo and legionella #Start IV antibiotics-preferably beta lactam+ macrolide at this time. If she is clinically stable with no fever, or elevation in white count, would discontinue the antibiotics in the next 24 hours. Penicillin allergy- causes vaginal discharge. Discussed with the patient about the allergy. #Chek urine lites, FeNa which could be misleading in her case, given recent use of Lasix that could have caused isothenurea. #Check FeUrea. #Check V/Q scan in the a.m., or if kidney function improves would check CTA to rule out PE. She would need iv Solu-Medrol+benadryl. If she has any evidence of PE, would consider checking echocardiogram. Obtain records from [facility] #Hold diuretic for the next 24 hours. #Pain management. #No echocardiogram at this time. Check for recent echo from [facility]. DVT Ppx- iv heparin. Barry MEREDITH,Cezar Leonardo 05/21/18 0524: Core Measures/Misc (06/13) Sepsis (View protocol) If YES complete Sepsis Event Note If YES complete Sepsis Event Note Attending MD Review Statement Attending Statement Attending MD Statement: examined this patient, discuss w/resident/PA/MILLER DISTILLERY, agreed w/resident/PA/MILLER DISTILLERY Attending Assessment/Plan: 77 year-old female recently discharged from [facility] for treatment of congestive heart failure, brought in by family for concerns about low blood pressure and hypoxia (93%) noted by VNS. BP in ER was stable- but she also was complaining of right sided pleuritic chest pain and her D-dimer was elevated. Denies precordial chest pain, no fevers, white blood cell count normal. CXR appeared to show abnormality to the left base, so antibiotics were started for pneumonia. No evidence of sepsis. Blood cultures drawn, and plan was to proceed with CT angiogram to rule out PE, but patient then stated that she gets 'anaphylaxis' with this, so instead empirically treated with anticoagulation and will arrange V/Q in AM. Creatinine is slightly up from baseline probably as result of enhanced diuresis following recent hospitalization. Was given IVF's in ER in response to orthostatic changes, but appears more or less euvolemic to me. With elevated creatinine would opt for heparin for now. Right subscapular pain is chronic and she has orthopedic follow up already arranged. If V/Q cannot be performed on a Wednesday patient is agreeable to CT angio with pre-treatment with Benadryl/steroids. Plan- place in observation for pneumonia and evaluation for PE. V/Q in AM; continue outpatient Lasix (40mg daily, divided); antibiotics for PNA. Cezar Reddy MD
[2018-05-20 21:15] VITALS: BP 160/90
[2018-05-20 22:29] LABS: PTT 29 SEC (25-37)
--- NOTE | 2018-05-21 06:11 | PN-Observation ---
Clifford Dickey 05/21/18 0608: Observation Note Observation Note _ I have personally examined ALTAF MATOS. her disposition is uncertain at this time. Before a determination can be made, she requires continued observation for the following reasons hypoxia and hypotension Assessment/Plan Medical Assessment: Ms Matos is a 77 year old woman w/ a past history of CHF, hypertension, hypothyroidism, depression Parkinson's disease(started on levodopa/carbidopa), rheumatoid arthritis, last admission to [facility] for Parkinson's 2017-01/18/2018, recent dc from [facility] 05/16-05/19 for dx of CHF, sent from [facility] with a chief concern of hypoxemia and hypotension. At the time of her arrival temperature 95.6, pulse rate 78, respiration 20, blood pressure 100/57 (improved to 137/86), 93-97% on room air. Pertinent lab findings: WBC 6.7 -->8.1 hemoglobin 10.9-->9.7 platelet count 430 (reactive)-->361 BUN 21, creatinine 1.3-->1.0 ProBNP 3130 D-dimer 1732 Urinalysis-hyalin casts 15-25 (likely dehydration), moderate bacteria, many epithelial cells, WBC 5-10, with trace leukocyte esterase, negative nitrites. Chest x-ray 05/21/18- revealed There is patchy opacification at the left base which may be consistent with developing consolidation. Correlate clinically. 2. The right shoulder appears to be inferiorly dislocated. Echo Problem list: 1. Community-acquired pneumonia ? 2. Elevated d-dimer, r/o PE, DVT 3. Shoulder dislocation (inferior)-chronic 4. Acute kidney injury(likely prerenal) 5. h/o Parkinsons disease 6. Thrmombocytosis( reactive ) 7. h/o HFpEF 8. h/o hypothyroidism Etiology in her case of acute decompensation especially low BP, and lethargy is likely multifactorial at this time; likely overdiuresis in a newly diagnosis of CHF, and diarrhea causing hypovolemia, leading to her current clinical condition. This may have led her to have acute kidney injury,which seem to have been improving. She was also found to have slightly elevated d-dimer which can be attributed to activation of ADH secretion, leading to slightly elevated d- dimer, that said venous thromboembolism needs to be ruled out. In regards to this vague radiological finding of opacity on the left lower lung lobe, could be considered as possible pneumonia without any clear clinical signs supporting the diagnosis. She has chronic dislocation of shoulder, with no neurological changes. Plan: #Follow CBCs with differential, serum chemistries #Check blood cultures, sputum cultures and Gram stain; negative so far. #Check urine antigen test for strep pneumo and legionella #Start IV antibiotics-preferably beta lactam+ macrolide at this time. If she is clinically stable with no fever, or elevation in white count, would discontinue the antibiotics in the next 24 hours. #Check FeUrea. Urinel lytes show Isothenurea secondary to diuretic use. #Check V/Q scan in the a.m., or if kidney function improves would check CTA to rule out PE. She would need iv Solu-Medrol+benadryl. If she has any evidence of PE, would consider checking echocardiogram. Obtain records from [facility]. #Hold diuretic and restart in the am. #Pain management. #No echocardiogram at this time. Check for recent echo from [facility]. DVT Ppx- iv heparin. Problem List: 1. Acute kidney injury 2. Pneumonia Qualifiers Pneumonia type: due to unspecified organism Laterality: unspecified laterality Lung location: unspecified part of lung Qualified Code: J18.9 - Pneumonia, unspecified organism 3. Parkinson disease Plan: as above DVT/Prophylaxis: pharmacological Subjective Follow-up For: -Community-acquired pneumonia -Elevated d-dimer, r/o PE, DVT -Shoulder dislocation (inferior)-chronic -Acute kidney injury(likely prerenal) -h/o Parkinsons disease -Thrmombocytosis Complaints: pain scale (0-10) Subjective: She feels well, vitals remained stable overnight. Continued to have pain in her right shoulder region. Review of Systems Constitutional: Reports: see HPI. Objective Last 24 Hrs of Vital Signs/I&O Vital Signs Date Time Temp Pulse Resp B/P B/P Pulse O2 O2 Flow FiO2 Mean Ox Delivery Rate 05/21 0028 96 Room Air 05/20 2115 97.7 75 20 160/90 90 Room Air 05/20 1836 97.6 70 18 137/86 97 Room Air 05/20 1556 97.6 66 18 144/63 97 Room Air 05/20 1459 94 Room Air 05/20 1328 95.6 78 20 100/57 93 Room Air Intake & Output 05/21 0800 05/21 0000 05/20 1600 Intake Total 1240 Output Total Balance 1240 Intake, IV 1000 Intake, Oral 240 Patient 139 lb 137 lb Weight Weight Bed scale Reported by Patient Measurement Method Physical Exam General Appearance: Alert Other Physical Findings: General Exam: AAOx3, No acute distress, mucus membranes dry; Skin: No rashes, no breakdown; HEENT: PERRLA, EOMI; Neck: Supple, No JVD ; No cervical lymphadenopathy; CVS: Reg Rate, Normal S1,S2, No MGR; Resp: Normal air entry, no ronchi/rales; Abdomen: Soft, No tenderness, Normal Bowel Sounds; Neuro: Normal Speech, Strength 5/5 b/l x 4 extremities, Sensation intact, CN III -XII NL,Reflexes 2+; Extremities: No cyanosis, no pedal edema, right shoulder pain on passive abduction of right upper extremity. Current Medications: Current Medications Sig/Christy Start time Last Medication Dose Route Stop Time Status Admin Acetaminophen 650 MG ONCE ONE 05/20 1915 DC 05/20 PO 05/20 1916 191 Acetaminophen 0 .STK-MED ONE 05/20 1913 DC PO Azithromycin 500 MG 05/20 05/20 Sodium Chloride 250 ML IV 2158 Carbidopa/Levodopa 2 TAB Q4 05/20 2200 AC 05/21 PO 0200 Carbidopa/Levodopa 0.5 TAB DAILY PRN 05/20 2021 AC PO Ceftriaxone Sodium 1,000 MG 05/20 AC 05/20 IV 2158 Diphenhydramine HCl 25 MG ONCE PRN 05/20 2045 DC 05/20 PO 05/20 2300 2102 Doxycycline Hyclate 100 MG ONCE ONE 05/20 1715 DC 05/20 Dextrose/Water 100 ML IV 05/20 1820 1750 Furosemide 20 MG BID 05/21 09 AC PO Glycerin 2 SPRAY Q2P PRN 05/21 0230 AC PO Heparin Sodium 0 .STK-MED ONE 05/21 0035 DC (Porcine) .ROUTE Heparin Sodium 25,000 UNIT Q24H 05/20 2030 AC 05/21 (Porcine) IV 0035 Sodium Chloride 500 ML Heparin Sodium 5,000 UNIT ONCE ONE 05/20 2030 DC 05/21 (Porcine) IV 05/20 2031 0034 Levothyroxine Sodium 0.025 MG 0500 05/21 0500 AC 05/21 PO 0419 Lidocaine 1 PAT Q24H 05/20 2000 AC 05/20 EXT 2158 Morphine Sulfate 2 MG Q4P PRN 05/21 0545 AC IV Morphine Sulfate 2 MG Q8P PRN 05/20 2030 DC 05/21 IV 0045 Polyethylene Glycol 17 GM AT BEDTIME PRN 05/20 2000 AC PO Senna/Docusate Sodium 1 TAB AT BEDTIME 05/20 2100 CAN PO Sodium Chloride 1,000 ML BOLUS ONE 05/20 1615 DC 05/20 IV 05/20 1714 1613 Tramadol HCl 0 .STK-MED ONE 05/21 0510 DC PO Tramadol HCl 50 MG STAT STA 05/21 0506 DC 05/21 PO 05/21 0507 0527 Tramadol HCl 50 MG Q8P PRN 05/20 2000 AC 05/20 PO 2225 Zolpidem Tartrate 5 MG QPM 05/20 2100 AC 05/20 PO 2225 Last 24 Hrs of Labs/Mics: Laboratory Tests 05/20/18 2210: APTT 29 05/20/18 1824: Urine Color YEL, Urine Clarity HAZY H, Urine pH 6.5, Ur Specific [place] 1.015, Urine Protein TRACE H, Urine Ketones NEG, Urine Nitrite NEG, Urine Bilirubin NEG, Urine Urobilinogen 0.2, Ur Leukocyte Esterase TRACE H, Ur Microscopic SEDIMENT EXAMINED, Urine RBC 1-3, Urine WBC 5-10 H, Ur Epithelial Cells MANY H , Urine Bacteria MOD H, Hyaline Casts 15-25 H, Granular Casts RARE H, Urine Hemoglobin NEG, Urine Glucose NEG 05/20/18 1824: Ur Random Creatinine 90.6, Ur Random Sodium 51, Ur Random Potassium 84.4, Fraction Sodium Excret 0.5 05/20/18 1635: Lactic Acid Cancelled 05/20/18 1344: Anion Gap 8, Estimated GFR 40 L, BUN/Creatinine Ratio 16.2, Glucose 110 H, Lactic Acid 1.7, Calcium 9.6, Total Bilirubin 0.4, AST 15, ALT 12, Alkaline Phosphatase 77, Troponin I < 0.01, Kks-H-Fnuzaralsrb Pept 3130 H, Total Protein 6.7, Albumin 3.6, Globulin 3.1, Albumin/Globulin Ratio 1.2, TSH &T3 &Free T4 Intrp 3.270, D-Dimer High Sensitivty 1732 H 05/20/18 1335: CBC w Diff NO MAN DIFF REQ, RBC 3.78 L, MCV 86.3, MCH 29.0, MCHC 33.5, RDW 14.4 , MPV 8.9, Gran % 76.7 H, Lymphocytes % 12.7 L, Monocytes % 7.0, Eosinophils % 3.3, Basophils % 0.3, Absolute Granulocytes 5.1, Absolute Lymphocytes 0.8 L, Absolute Monocytes 0.5, Absolute Eosinophils 0.2, Absolute Basophils 0 Microbiology 05/20 1600 BLOOD: Blood Culture - RECD 05/20 1532 BLOOD: Blood Culture - RECD Felix Duran MD 05/21/182: Observation Note Observation Note _ I have personally examined ALTAF MATOS. her disposition is uncertain at this time. Before a determination can be made, she requires continued observation for the following reasons []. Attending MD Review Statement Attending Statement Attending MD Statement: examined this patient, discuss w/resident/PA/WHEEL TRUER, agreed w/resident/PA/WHEEL TRUER, reviewed EMR data (avail), discussed w/nursing, discussed w/ case mgmt, amended to note Attending Assessment/Plan: The patient was seen and discussed with house staff, nursing and case management. V/Q scan neg for pulmonary embolism. The patient's symptoms resolved. OK to discharge to home and treat as community acquired pneumonia. W10 completed and will resume [facility] services.
[2018-05-21 06:30] VITALS: BP 158/84
[2018-05-21 07:31] LABS: PTT 91 SEC (25-37)
[2018-05-21 07:40] LABS: ABSOLUTE BASOPHIL COUNT 0.1 /CUMM (0.0-0.2); ABSOLUTE EOSINOPHIL COUNT 0.5 /CUMM (0.0-0.7); ABSOLUTE GRANULOCYTE CT 5.8 /CUMM (1.4-6.5); ABSOLUTE LYMPH COUNT 1.2 /CUMM (1.2-3.4); ABSOLUTE MONOCYTE COUNT 0.6 /CUMM (0.10-0.60); BASOPHIL % 0.6 % (0.0-2.0); EOSINOPHIL % 6.1 % (0-5); GRANULOCYTE % 70.8 % (42.2-75.2); HEMATOCRIT 28.7 % (37-47); MEAN CORPUSCULAR HGB 28.9 PG (27.0-31.0); MEAN CORPUSCULAR HGB CONC 33.7 G/DL (33.0-37.0); MEAN CORPUSCULAR VOLUME 85.8 FL (81.0-99.0); MEAN PLATELET VOLUME 8.9 FL (7.4-10.4); PLATELET COUNT 361 /CUMM (130-400); RBC DISTRIBUTION WIDTH 14.6 % (11.5-14.5); RED BLOOD CELL CT 3.34 /CUMM (4.20-5.40); WHITE BLOOD CELL COUNT 8.1 /CUMM (4.8-10.8)
--- NOTE | 2018-05-21 13:04 | NUCLEAR MEDICINE REPORT ---
EXAMINATION: NM LUNG SCAN V/Q CLINICAL INFORMATION: SOB, elevated d-dimer. COMPARISON: Chest x-ray 01/18/2018 TECHNIQUE: Following inhalation of 14.5 mCi of xenon 133, inspiration, hydroureter and expiration images of chest were obtained in posterior projection. Subsequently 4.2 mCi of technetium 99m MAA was injected and images of both lungs are obtained in multiple projections. FINDINGS: On ventilation images there is normal aeration of both lungs with no xenon trapping seen on the short. On perfusion images there is a bandlike artifact seen in the left midlung on LPO projection only. It is not visualized on HEBREW APR PA projection. Chest x-ray abnormality seen in the left lung base reveals normal perfusion and aeration of the left lower lobe. The right lung perfuses normally. IMPRESSION: Normal ventilation. Bandlike like abnormality along major fissure left lung on LPO view only. It is most likely artifact in addition to normal heart shadow inferiorly. The above composite findings are suggestive of low probability for PE.
--- NOTE | 2018-05-21 14:36 | Patient Discharge Instructions ---
Discharge Instructions General Discharge Information You were seen/treated for: Pneumonia Watch for these problems: Fever, chest pain, shortness of breath Special Instructions: Please take all medications as directed. Diet Continue normal diet: Yes Activity Full Activity/No Limits: Yes Acute Coronary Syndrome Inclusion Criteria At DC or during hospital stay patient has or had the following: ACS DIAGNOSIS No Discharge Core Measures Meds if any: Prescribed or Continued at Discharge Meds if any: NOT Prescribed or Continued at Discharge Congestive Heart Failure Inclusion Criteria At DC or during hospital stay patient has or had the following: CHF DIAGNOSIS No Discharge Core Measures Meds if any: Prescribed or Continued at Discharge Meds if any: NOT Prescribed or Continued at Discharge Cerebrovascular accident Inclusion Criteria At DC or during hospital stay patient has or had the following: CVA/TIA Diagnosis No Discharge Core Measures Meds if any: Prescribed or Continued at Discharge Meds if any: NOT Prescribed or Continued at Discharge Venous thromboembolism Inclusion Criteria VTE Diagnosis No VTE Type NONE VTE Confirmed by (Test) LUNG SCAN (V/Q) Discharge Core Measures - Per Current guidelines, there needs to be overlap - treatment for the first 5 days of Warfarin therapy. - If discharged on Warfarin prior to 5 days of - overlap therapy, the patient will need to be - assessed for post discharge needs including - *Post discharge parental anticoagulation - *Warfarin and/or parental anticoagulation education - *Follow up date to check INR post discharge At least 5 days overlap therapy as Inpatient No Meds if any: Prescribed or Continued at Discharge Note: Overlap Therapy is Warfarin and Anticoagulant Meds if any: NOT Prescribed or Continued at Discharge
[2018-05-21] MEDS ORDERED: AMOXICILLIN500 M3 PO (14:44)
[2018-05-21 15:06] VITALS: BP 154/74; BP 162/84
[2018-05-21] MEDS ORDERED: ZITHROMAX250 M2 PO (15:22)
[2018-05-21] MEDS ORDERED: CEFDINIR300 M1 PO (15:25)
== END 2018-05-21 15:31 ==
LOC: ERH 13:17 → ERHI 18:56 → 2NA 18:56 → ENRESERV 19:27 → ENTRNSPT 20:07 → EDTRNSPT 20:08 → EDTRNSPTSTS 20:08 → 2NA 20:17 → CMPTRNSPT 20:32 → ENPENDDIS 05-21 14:54 → ENTRNSPT 05-21 15:22 → EDTRNSPTSTS 05-21 15:27 → EDTRNSPT 05-21 15:27 → 2NA 05-21 15:31 → CMPTRNSPT 05-21 16:14
PROVIDERS: Internal Medicine Endocrinology, Diabetes & Metabolism; Physician Assistant Medical
DX: J18.9 Pneumonia, unspecified organism (principal); G20 Parkinson's disease; I11.0 Hypertensive heart disease with heart failure; I50.32 Chronic diastolic (congestive) heart failure; E03.9 Hypothyroidism, unspecified; F32.9 Major depressive disorder, single episode, unspecified; N17.9 Acute kidney failure, unspecified; D47.3 Essential (hemorrhagic) thrombocythemia; M24.419 Recurrent dislocation, unspecified shoulder
CPT/HCPCS: 6030; 84133; 84300; 36592; 71045; 78582; 81001; 82436; 82570; 87040; 93005; 93010; 96372; 96374; 96375; A9540; A9558; G0378; J0456; J0696; J1644; J7040